=== PATIENT | male | born 1955 | race Hispanic/Latino ===

== ENCOUNTER 2017-11-06 03:37 | Inpatient (IN) | payer BC, MEDICARE ==
[2017-11-06 04:14] LABS: #Eosinphils 0.3 thou/uL (0.0-0.7); #Lymphocytes 4.6 thou/uL (1.20-3.40); %Basophils 0.2 % (0.0-1.0); %Lymphocytes 33.4 % (21.0-51.0); %Monocytes 6.9 % (0.0-10.0); %Neutrophils 57.6 % (42.0-75.0); Hemoglobin 13.4 g/dL (14.0-18.0); Mean Corpuscular HGB CONC 34.2 g/dL (32.0-36.0); Mean Corpuscular Hemoglobin 33.9 pg (27.0-31.0); Mean Corpuscular Volume 99.2 fl (80.0-94.0); Mean Platelet Volume 6.4 fL (7.4-10.4); Platelet Count 195 thou/uL (130-400); RBC Distribution Width 12.5 % (11.5-14.5); Red Blood Cell (RBC) Count 3.94 mill/uL (4.70-6.10); White Blood Cell (WBC) Count 13.9 thou/uL (4.8-10.8)
[2017-11-06] MEDS ORDERED: EPINEPHrine 1 MG, Admixture Fee 1 EACH in Dextrose 5% in Water 250 ML IVPB SCH (04:15)
[2017-11-06 04:18] LABS: PTT 40.5 SEC (22.9-36.1); Prothrombin Time 23.6 SEC (12.0-14.7)
[2017-11-06 04:27] LABS: Acetaminophen Less than 6.0 mcg/mL (10.0-30.0); Alcohol Less than 10 mg/dL (Less than 10); Salicylate Less than 8.0 mg/dL (15.0-30.0)
[2017-11-06 04:28] LABS: ALT (SGPT) 36 U/L (8-55); AST (SGOT) 40 U/L (5-34); Albumin 3.8 g/dL (3.5-5.0); Alkaline Phosphatase 91 U/L (40-150); Anion Gap 25 mmol/L (10-20); BUN (Urea Nitrogen) 22 mg/dL (8.4-25.7); Bilirubin, Total 0.2 mg/dL (0.2-1.2); Calc. Creatinine Clearance 0 mL/min (70-130); Carbon Dioxide 13 mmol/L (22-29); Chloride 105 mmol/L (98-107); Estimated GFR-MDRD 54; Globulin 2.8 g/dL (2.4-3.5); Glucose 251 mg/dL (70-105); Potassium 5.1 mmol/L (3.5-5.1); Protein, Total 6.6 g/dL (6.0-8.3); Sodium 138 mmol/L (136-145)
[2017-11-06 04:31] LABS: CKMB 3.8 ng/mL (0-6.6); Troponin I 0.047 ng/mL (< 0.028)
[2017-11-06] MEDS ORDERED: Lorazepam 2 MG/ML VIAL ONE ×4 (04:32→08:48)
[2017-11-06] MEDS ORDERED: Propofol 1,000 MG/100 ML VIAL IV ONE ×2 (04:42→09:03)
[2017-11-06 04:43] LABS: Actual Bicarbonate (HCO3a) 17.8 mEq/L (22-26); Base Excess (BEa) -10.1 mEq/L (0 (+/-) 2.5); CO2 Tension 47.1 mmHg (35.0-45.0); Hematocrit-ABG 36.9 % (42.0-52.0); O2 Tension (PaO2) 394.8 mmHg (80.0-100.0)
[2017-11-06 04:44] LABS: Analyzer IN Cardio ER; Calcium, Ionized 1.3 mmol/L (1.12-1.30); Hemoglobin (Hb) 12.5 g/dL (14.0-18.0); Puncture Site R RADIAL
[2017-11-06 04:46] LABS: ALV-art Gradient 259.325 (0-20)
[2017-11-06] MEDS ORDERED: Heparin 5,000 UNITS/ML VIAL ONE (05:05)
[2017-11-06 05:13] LABS: Bilirubin Negative (Negative); Blood, Urine Trace (Negative); Clarity CLEAR (Clear); Glucose, Urine (Dipstick) Negative (Negative); Leukocyte Negative (Negative); Nitrite Negative (Negative); Protein, Urine (Dipstick) Negative (Neg-Trace); Specific Gravity, Urine 1.014 (1.002-1.036); Urobilinogen 0.2 mg/dL (0.2-1.0)
[2017-11-06] MEDS ORDERED: levETIRAcetam In NaCl (Iso-Os) 1,500 MG in Premix Bag 1 BAG IVPB SCH (05:15)
[2017-11-06 05:16] LABS: Bacteria/HPF None Seen HPF (None Seen); Hyaline Casts/LPF 0-3 HYALINE CAST LPF (0-3 Hyaline); Pathc Cast-AUWi Flag 0.29 (0-2.49); RBC/HPF 0-3 HPF (0-3); Squamous Epithelial 0-3 HPF (0-3); WBC/HPF None Seen HPF (0-3)
[2017-11-06 05:24] LABS: Amphetamine Not Detected (NotDetected); Barbiturates Screen Detected (NotDetected); Benzodiazepine Screen Not Detected (NotDetected); Cocaine Metabolite Screen Not Detected (NotDetected); Medtox Control Line Valid? VALID (VALID); Medtox Reader # READER 4; Methadone Not Detected (NotDetected); Methamphetamine Not Detected (NotDetected); Opiate Screen Not Detected (NotDetected); Oxycodone Screen Not Detected (NotDetected); Phencyclidine (PCP) Not Detected (NotDetected); THC/Cannabinoid Screen Not Detected (NotDetected); Tricyclic Screen Not Detected (NotDetected)
--- NOTE | 2017-11-06 07:52 | RAD ---
PORTABLE SUPINE CHEST: HISTORY: STEMI. COMPARISON: 08/01/11. FINDINGS/IMPRESSION: Cardiomegaly with postop sternotomy change and prosthetic heart valve. Pacemaker leads. Mild vascul ar engorgement. No focal infiltrate or significant effusion. ET tube has tip above the ton. POS: [facility]
[2017-11-06 07:55] LABS: Actual Bicarbonate (HCO3a) 19.5 mEq/L (22-26); Base Excess (BEa) -5.2 mEq/L (0 (+/-) 2.5); CO2 Tension 35.1 mmHg (35.0-45.0); Calcium, Ionized 1.2 mmol/L (1.12-1.30); Hematocrit-ABG 35.6 % (42.0-52.0); Hemoglobin (Hb) 12.1 g/dL (14.0-18.0); O2 Tension (PaO2) 143.2 mmHg (80.0-100.0); pH, Arterial 7.36 (7.35-7.45)
[2017-11-06 07:56] LABS: ALV-art Gradient 166.925 (0-20); Puncture Site RR
[2017-11-06 08:21] LABS: Lactic Acid 2.9 mmol/L (0.5-2.2)
[2017-11-06] MEDS: Sodium Chloride 0.9% 1,000 ML IV SCH ×2 (08:39→19:29)
[2017-11-06] MEDS: Lorazepam 2 MG/ML VIAL SLOW IVP SCH ×4 (08:48→20:03)
[2017-11-06] MEDS ORDERED: Ventilator Sedation Protocol 1 EACH FS SCH (09:00)
[2017-11-06] MEDS ORDERED: PROPOFOL 0 ML ONE (09:02)
[2017-11-06] MEDS: Propofol 1,000 MG/100 ML VIAL IV PRN ×3 (09:06→22:27)
[2017-11-06] MEDS ORDERED: Ondansetron ODT 4 MG TAB SL PRN (09:19)
[2017-11-06] MEDS ORDERED: Bisacodyl 10 MG SUPP PR PRN (09:19)
[2017-11-06] MEDS ORDERED: hydrALAZINE 20 MG/ML VIAL SLOW IVP PRN (09:19)
[2017-11-06] MEDS ORDERED: Eucerin (Mineral Oil/Petrolatum,White) 30 gm Jar TOP PRN (09:19)
[2017-11-06] MEDS ORDERED: Mag-Al 1200 mg/1200 mg/30 ML UDCUP PER TUBE PRN (09:19)
[2017-11-06] MEDS ORDERED: Ondansetron HCl/PF 4 MG/2 ML Vial IVP PRN (09:19)
[2017-11-06] MEDS ORDERED: Diabetic Tussin 200 MG/10 ML UDCUP PER TUBE PRN (09:19)
[2017-11-06] MEDS ORDERED: Acetaminophen 325 MG TAB PER TUBE PRN (09:19)
[2017-11-06] MEDS ORDERED: Morphine 4 MG/ML VIAL SLOW IVP PRN (09:19)
[2017-11-06] MEDS ORDERED: Fentanyl BOLUS 250 ML IVPB PRN (09:19)
[2017-11-06] MEDS ORDERED: Milk Of Magnesia 30 ML UDCUP PER TUBE PRN (09:19)
[2017-11-06] MEDS ORDERED: Artificial Tears 18 DROP/0.9 ML EA EYE PRN (09:19)
[2017-11-06] MEDS ORDERED: Propofol BOLUS 1,000 MG/100 ML VIAL IV PRN (09:19)
[2017-11-06] MEDS ORDERED: Senokot 8.6 MG TAB PER TUBE PRN (09:19)
--- NOTE | 2017-11-06 10:36 | CON ---
DATE OF CONSULTATION: 11/06/2017 A 62-year-old gentleman who as per the daughter and the at 3:00 in the morning he started to seize. He has known history of seizure activity. Apparently CPR was initiated at home a ccording to arrival on the ER physician's note. He was in PEA. He was intubated with a #7 tube. During transport he was given epinephrine, sodium bicarbonate. Ongoing CPR with epinephrine. Patient was well prior to his recent event today. He has been healthy. No other issues. PAST MEDICAL HISTORY: Pertinent for hypertension, seizure disorders, aortic valve replacement 10 yea rs ago. He is status post defibrillator placed. He normally seeks care at [facility]. He has got [facility] there. Additionally, he apparently has a diagnosed of cirrhosis. Hypertension. PAST SURGICAL HISTORY: As noted, aortic valve and an AICD. MEDICATIONS FROM HOME: Dilantin 200 twice a day, amlodipine 10 a day, aspirin, Coreg 12.5 two a day, lisinopril 20, Cardura 1, Coumadin 3 mg. ALLERGIES: None. SOCIAL HISTORY: Alcohol; none. Tobacco none. He is a garcía, retired. REVIEW OF SYSTEMS: Unobtainable. PHYSICAL EXAMINATION: HEENT: Dilated pupils at 2 mm. He was seizing when I arrived. VITAL SIGNS: Sats are 98, respiration is 24, pulse 70, blood pressure 130/80. During seizure activi ty he was given 2 of Ativan. CHEST: No wheezing or crackles. CARDIAC: Normal S1, S2. No gallops. ABDOMEN: Soft, no masses. X-ray shows cardiomegaly, no acute infiltrates. PO2 is 143, pCO2 is 35.36, 50%, rate 25. His calcium is 2.9. His electrolytes were normal. A CT of the brain was done on an emergency basis. No obvious bleed was seen. Additional laboratory is pending. IMPRESSION: 1. Status epilepticus. 2. Status post pulseless electrical activity. 3. History of valvular surgery. 4. History of automatic implantable cardioverter/defibrillator in place. 5. Obesity. 6. Probably anoxic injury. PLAN: Control seizure activity with Keppra, Ativan. Await input from Neurology. Continue IV fluids . Continue hypothermic protocol. Proton pump inhibitors. At this stage, prognosis remains guarded. I discussed with the and the daughter at length. [place] it input from Neurology, etc. This is a Forty-five minutes critical care time.
[2017-11-06 10:48] LABS: Troponin I 3.491 ng/mL (< 0.028)
[2017-11-06] MEDS: levETIRAcetam In NaCl (Iso-Os) 1,000 MG in Premix Bag 1 BAG IVPB SCH ×2 (11:47→19:24)
--- NOTE | 2017-11-06 11:54 | ULT ---
BILATERAL TESTICULAR ULTRASOUND WITH DOPPLER: (DENIS SCALE, COLOR FLOW, AND SPECTRAL DOPPLER) Date: 11/06/17 HISTORY: 62-year-old male with edematous left scrotum. Concern for blood versus torsion. FINDINGS: The right testis measures 3.9 x 2.8 x 2.1 cm. The left testis measures 5.1 x 2.8 x 2.0 cm. No testicu lar mass is seen on either side. Flow is demonstrated to the right testis. The right epididymis measures 1.8 x 1.3 x 0.8 cm with cysts in the epididymal head, the largest measu ring 6.0 mm. The left epididymis is not visualized. There is questionable flow to the right epididymis. A large left-sided complex hydrocele is seen measuring 9.9 x 7.2 x 5.3 cm. No arterial flow is detect ed to the left testis. there is questionable minimal venous flow versus artifact in the left testis. IMPRESSION: 1. Large complex left hydrocele. 2. Questionable flow in the left testis is likely due to mass by the large hydrocele; however, the p ossibility of torsion cannot be completely excluded. A call was placed to Dr. Ami Pinzon at 1040 hours. Report was called over the phone to the patient's nurse Brea Dickey at 1053 hrs. CODE CR. POS: [facility]
--- NOTE | 2017-11-06 12:24 | CT ---
PRELIMINARY REPORT/[facility]/EMERGENTY AFTER-HOURS PROCEDURE CT Head Without Intravenous Contrast EXAM DATE/TIME: Exam ordered 11/06/2017 4:24 AM CLINICAL HISTORY: 62 years old, male; Signs and symptoms; Other: Seizure; Patient HX: M63 presents to ed intubated with cpr in progress. Initial call was for convulsions. HX of seizures. Family initiated cpr 15 minutes p rior to ems arrival. Ems took compressions over. TECHNIQUE: Axial computed tomography images of the head/brain without intravenous contrast. COMPARISON: No relevant prior studies available. FINDINGS: Brain: Normal. No hemorrhage. No significant white matter disease. No edema. Ventricles: Normal. No ventriculomegaly. Bones/joints: Normal. No acute fracture. Soft tissues: Normal. Sinuses: Unremarkable as visualized. No acute sinusitis. Mastoid air cells: Unremarkable as visualized. No mastoid effusion. IMPRESSION: No acute intracranial hemorrhage. Thank you for allowing us to participate in the care of your patient. Dictated and Authenticated by: Tushar Jurado MD 11/06/2017 4:53 AM Central Time ([place] & [place]) FINAL REPORT CT BRAIN WITHOUT CONTRAST: Date: 11/06/17 FINDINGS/IMPRESSION: I agree with the preliminary report given by Luke. POS: [facility]
--- NOTE | 2017-11-06 12:27 | CT ---
PRELIMINARY REPORT/[facility]/EMERGENTY AFTER-HOURS PROCEDURE CT Cervical Spine Without Intravenous Contrast EXAM DATE/TIME: Exam ordered 11/06/2017 4:26 AM CLINICAL HISTORY: 62 years old, male; Signs and symptoms; Other: Seizure; Patient HX: M63 presents to ed intubated with cpr in progress. Initial call was for convulsions. HX of seizures. Family initiated cpr 15 minutes p rior to ems arrival. Ems took compressions over. TECHNIQUE: Axial computed tomography images of the cervical spine without intravenous contrast. Coronal and sagittal reformatted images were created and reviewed. COMPARISON: No relevant prior studies available. FINDINGS: Vertebrae: No acute cervical spine fracture is identified. Discs/spinal canal/neural foramina: No acute findings. No spinal canal stenosis. Soft tissues: Normal. Lung apices: Unremarkable as visualized. Tubes, lines and devices: Patient is intubated. IMPRESSION: No acute cervical spine fracture is identified. Thank you for allowing us to participate in the care of your patient. Dictated and Authenticated by: Tushar Jurado MD 11/06/2017 4:55 AM Central Time ([place] & [place]) FINAL REPORT CT CERVICAL SPINE WITH CORONAL AND SAGITTAL REFORMATIONS: Date: 11/06/17 FINDINGS/IMPRESSION: I agree with the preliminary report given by Luke. POS: [facility]
--- NOTE | 2017-11-06 12:41 | PDOC.PN ---
- Subjective Encounter Start Date: 11/06/17 Encounter Start Time: 09:15 -: old records requested/rev Patient seen and examined for cardiac arrest. Noted overnight events - Objective MAR Reviewed: Yes Vital Signs & Weight: Vital Signs (12 hours) Temp Pulse Resp BP Pulse Ox 11/06/17 12:25 70 109/59 L 11/06/17 10:23 70 105/57 L 11/06/17 08:00 98.7 F 70 25 H 98 11/06/17 07:43 70 126/76 Most Recent Monitor Data Heart Rate from ECG 78 NIBP 105/74 NIBP BP-Mean 81 Respiration from ECG 20 SpO2 99 I&O: 11/05/17 11/06/17 11/07/17 06:59 06:59 06:59 Output Total 165 Balance -165 Result Diagrams: 11/06/17 04:02 11/06/17 04:02 Radiology Reviewed by me: Yes (chest xray) EKG Reviewed by me: Yes (nsr) Phys Exam - Physical Examination Constitutional: NAD intubated pupil dilated Neck: no nodes, supple Respiratory: no wheezing, no rales, no rhonchi Cardiovascular: RRR, no significant murmur, no rub Gastrointestinal: soft distended Musculoskeletal: no edema, pulses present testicular swelling unable to assess due to intubated and unresponsive Lymphatic: no nodes Deviation from normal: unable assess Skin: no rash Dx/Plan (1) Acute respiratory failure with hypoxemia Code(s): J96.01 - ACUTE RESPIRATORY FAILURE WITH HYPOXIA Status: Acute (2) Cardiac arrest Code(s): I46.9 - CARDIAC ARREST, CAUSE UNSPECIFIED Status: Acute (3) Demand ischemia of myocardium Code(s): I24.8 - OTHER FORMS OF ACUTE ISCHEMIC HEART DISEASE Status: Acute (4) Lactic acidosis Code(s): E87.2 - ACIDOSIS Status: Acute (5) Chronic anticoagulation Code(s): Z79.01 - USP (CURRENT) USE OF ANTICOAGULANTS Status: Chronic (6) H/O heart valve replacement with mechanical valve Code(s): Z95.2 - PRESENCE OF PROSTHETIC HEART VALVE Status: Chronic (7) Obesity (BMI 30-39.9) Code(s): E66.9 - OBESITY, UNSPECIFIED Status: Chronic (8) Pacemaker Code(s): Z95.0 - PRESENCE OF CARDIAC PACEMAKER Status: Chronic - Plan cont current plan of care, plan discussed w/ family * currently on hypothermia protocol * neurology, pulmonary, cardiology on case * discussed current condition and updated prognosis to family bedside. * will get echo * pacemaker interrogation * medication reviewed as below * symptomatic treatment * prognosis is poor * keep NPO, NG tube with LIS * continue keppra Review of Systems - Review of Systems Other: unable to review due to intubated status and pt is unresponsive - Medications/Allergies Allergies/Adverse Reactions: Allergies Allergy/AdvReac Type Severity Reaction Status Date / Time No Known Allergies Allergy Verified 11/06/17 09:00 Medications: Current Medications Acetaminophen (Tylenol) 650 mg PER TUBE Q4H PRN PRN Reason: Headache/Fever or Mild Pain Acetaminophen (Tylenol) 650 mg ND Q4H PRN PRN Reason: Headache/Fever or Mild Pain Al Hydroxide/Mg Hydroxide (Maalox) 15 ml PER TUBE Q4H PRN PRN Reason: Heartburn or Indigestion Artificial Tears (Tears Naturale) 0 drop EA EYE PRN PRN PRN Reason: Dry Eyes Bisacodyl (Dulcolax) 10 mg ND DAILYPRN PRN PRN Reason: Constipation Guaifenesin (Robitussin Sf) 200 mg PER TUBE Q4H PRN PRN Reason: Cough Hydralazine HCl (Apresoline) 10 mg SLOW IVP Q4H PRN PRN Reason: Systolic BP > 180 Epinephrine 1 mg/Miscellaneous Medication 1 each/ Dextrose/Water 251 mls @ 0 mls/hr IVPB INF CITLALI; Titrate PRN Reason: Protocol Sodium Chloride (Normal Saline 0.9%) 1,000 mls @ 110 mls/hr IV .Q9H6M [facility] Stop: 11/06/17 17:00 Last Admin: 11/06/17 08:39 Dose: 1,000 mls Levetiracetam 1,000 mg/ Device 100 mls @ 200 mls/hr IVPB BID CITLALI Last Admin: 11/06/17 11:47 Dose: Not Given Fentanyl Citrate 2,000 mcg/ (Sodium Chloride) 100 mls @ 0 mls/hr IV INF CITLALI; Per Protocol PRN Reason: Protocol Stop: 12/06/17 09:19 Fentanyl Citrate (Fentanyl Bolus) 250 mls @ 0 mls/hr IVPB PRN PRN; As Directed PRN Reason: Breakthrough pain/agitation Stop: 12/06/17 09:19 Lorazepam (Ativan) 2 mg SLOW IVP Q4HR CITLALI Last Admin: 11/06/17 08:48 Dose: 2 mg Lorazepam (Ativan) 2 mg SLOW IVP Q1H PRN PRN Reason: Breakthrough agitation Stop: 12/06/17 09:19 Magnesium Hydroxide (Milk Of Magnesium) 30 ml PER TUBE DAILYPRN PRN PRN Reason: Constipation Mineral Oil/White Petrolatum (Eucerin Cream) 0 gm TOP BIDPRN PRN PRN Reason: Dry Skin Morphine Sulfate (Morphine) 2 mg SLOW IVP Q1H PRN PRN Reason: breakthrough pain/agitation Stop: 12/06/17 09:19 Ondansetron HCl (Zofran Odt) 4 mg SL Q6H PRN PRN Reason: Nausea/Vomiting Ondansetron HCl (Zofran) 4 mg IVP Q6H PRN PRN Reason: Nausea/Vomiting Pantoprazole Sodium (Protonix) 40 mg IVP DAILY CITLALI Propofol (Diprivan) 1,000 mg IV INF PRN; Protocol PRN Reason: TO ACHIEVE GOAL RASS Stop: 12/06/17 09:19 Last Admin: 11/06/17 09:06 Dose: 1,000 mg Propofol (Diprivan Bolus) 20 mg IV Q5MIN PRN PRN Reason: BREAKTHROUGH AGITATION Stop: 12/06/17 09:19 Senna (Senokot) 2 tab PER TUBE HSPRN PRN PRN Reason: Constipation Sodium Chloride (Flush - Normal Saline) 10 ml IVF PRN PRN PRN Reason: Saline Flush
[2017-11-06] MEDS: Pantoprazole 40 MG VIAL IVP SCH (13:11)
--- NOTE | 2017-11-06 14:06 | HP ---
PRIMARY CARE PHYSICIAN: Patient's neurologist. CHIEF COMPLAINT: Loss of consciousness. HISTORY OF PRESENT ILLNESS: This is a 62-year-old male with known history of seizures, CABG, valvular replacement who presented after being found at home having seizures with subsequent loss of pulse. It appears that the patient's awoke from sleep at about 3:00 this morning because she noticed her is having seizures. She could not wake him up and noted that he did not have any pulses. Both her and her daughter at home subsequently started CPR and continued this for approximately 15 minutes until EMS arrived. At the time of EMS arrival, the patient was intubated in the field and still had what was described as PEA and continued to undergo CPR and ACLS protocol until arrival in the emergency department. In the emergency department, ACLS was again continued and the patient did have subsequent return of return of spontaneous circulation. In the emergency department, the patient was found to be unresponsive with bilateral pupils fixed and nonreactive. He then subsequently had a second code event which was also described as pulseless electrical activity. This occurred in the Emergency Department, please see the code report for further details regarding that episode. The patient was subsequently placed on a Levophed drip for hypotension. He is currently on mechanical ventilation and has also been given Ativan for concern of possible recurrent seizure in the emergency department. At the time of my evaluation, the patient is unable to provide a history. The history is as provided by the family including his sister, his and his daughter in conjunction with the ER documentation. REVIEW OF SYSTEMS: As provided by the family. Constitutional: No recent fevers, chills or weight changes. HEENT: No recent complaints of dizziness, lightheadedness, or vision changes. Patient's family states that the last time he had a seizure was sometime in July and he has not had any seizures since then. The patient does occasionally have seizures, but he has never lost pulses or required CPR post-seizure. Cardiovascular: No recent complaints of shortness of breath, dyspnea with exertion, chest pain, chest pressure, left- sided arm numbness, or weakness. Patient has been on Coumadin and he has not had any other changes to his cardiac regimen. Respiratory: No recent upper respiratory infection. The patient has been complaining of some seasonal congestion which he typically does about this time of the year historically per family. No recent complaints of shortness of breath. No recent new cough. Gastrointestinal: No recent changes in his appetite. No complaints of nausea, vomiting, diarrhea, constipation or abdominal pain. Genitourinary: The patient 's family has not noticed any increased urinary frequency nor has the patient complained to them of any dysuria or changes in urine odor or color. Musculoskeletal: The patient's family states that the patient has been very active, has not complained of any new myalgias or arthralgias. Remainder of the review of systems is otherwise, negative. PAST MEDICAL HISTORY: As obtained from the patient's family. 1. Longstanding epileptic seizures. He has seen a neurologist for this in the past. 2. Status post CABG x4 vessels. 3. Status post valvular replacement. 4. Status post permanent pacemaker. 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 FAMILY HISTORY: No known family history of seizures or cardiac arrhythmia or cancers. Patient's father had of a heart attack and his mother had congestive heart failure at the time of as well. HOME MEDICATIONS: Awaiting a finalized list from the patient's family, they have brought in the medications and these will need to be confirmed in the system section. SOCIAL HISTORY: Patient is . His is present at bedside. He is a lifetime nonsmoker. No alcohol use, no illicit drug use. His family including his sister, and daughter all at bedside endorsed that he would want to be a FULL CODE at this point in time. They state that when he had his CABG, he actually was rather ill immediately before and had indicated he wished to be DNR at that point in time, but then subsequently reversed that decision. PHYSICAL EXAMINATION: GENERAL: The patient is intubated. He is nonresponsive to painful stimuli despite being off of sedation. HEENT: Normocephalic, atraumatic. Pupils pinpoint and nonreactive. OG tube is draining bilious green fluid. CARDIOVASCULAR: S1, S2. Pulses 2+ bilateral upper extremity. Trace bilateral pitting pedal edema. RESPIRATORY: Coarse ventilator sounds throughout. Limited anterior examination. GASTROINTESTINAL: Positive bowel sounds. ABDOMEN: Distended but not tense. GENITOURINARY: The patient is noted to have a significant scrotal swelling per ER staff, this has actually increased in size during his emergency department stay subjectively. LABORATORY DATA AND IMAGING: WBC 13.9, hemoglobin 13.4, hematocrit 39.1, platelets 195. PT 23.6, INR 2.0. ABG: pH of 7.36, pCO2 of 35.1, pO2 of 143.2 , bicarbonate 19.5. Sodium 138, potassium 5.1, chloride 105, bicarb on BMP is 13, BUN 22, creatinine 1.35, glucose 251, lactic acid 2.9, AST 40, ALT 36, alkaline phosphatase 91. Troponin initial 0.57 subsequent 3.491. BNP 363. UA is significant for trace blood. Toxicology is positive for 2.2 of phenytoin and urine barbiturates noted. On 11/06/2017, chest x-ray. Impression: Cardiomegaly with postop sternotomy changes and prosthetic heart valve. Pacemaker leads. Mild vascular engorgement. No focal infiltrate or significant effusion. ET tube has tip above the ton. ASSESSMENT AND PLAN: This is a 62-year-old male who was brought in with pulseless electrical activity arrest to the emergency department by EMS. 1. Pulseless electrical activity arrest. Unclear etiology at this point in time. Patient is certainly post-ACLs protocol for greater than 15 minutes now, has noted elevated troponins and lactic acidosis. The patient does have a known seizure history and was noted to have a seizure immediately prior to loss of pulses, unclear if there is another event that precipitated both seizure and the patient's cardiac arrest as it would not be typical for a straightforward seizure to cause overt cardiac arrest. I appreciate Critical Care consultation , Cardiology consultation, Neurology consultation. Patient does have a brain CT which per my view and evaluation does not appear to have any overt hemorrhage or intracranial mass. However, this is also pending a formal radiology evaluation of the imaging. The patient is currently on hypothermia protocol status post arrest. I have discussed with the patient's family that his overall prognosis is very guarded at this point in time. They have discussed and wished to maintain him as a FULL CODE at this point in time as well. 2. Seizure history with breakthrough seizure. Will check patient's Dilantin level. It appears that on outpatient basis, he was initially noted to have "high" levels and was instructed to stop his Dilantin and not take it for the last 3 days. The patient has always used Dilantin. The patient's family is not aware of him either ever being trialled on any other antiepileptic regimen. Certainly, the patient's leukocytosis and lactate could be reactive in the postictal phase. 4. Acute hypoxic respiratory failure in the setting of a cardiac arrest. The patient is currently intubated on ventilator. Per the patient's , he has never had a formal sleep study, but he does have apneic episodes by description. She states that this is not every night, but often times. Unclear if this is truly contributory or not. 5. Elevated troponin. This is noted in the setting of cardiac arrest status post CPR. I appreciate Cardiology consultation. The patient certainly does have a longstanding history of cardiac issues. We will check echocardiogram and interrogate his permanent pacemaker with close monitoring of his electrolytes as well. 6. Leukocytosis with concern for possibility of infection, although no overt source found at this point in time, pending blood cultures, pending urine cultures. 7. Lactic acidosis post-cardiac arrest and CPR. Continue with IV hydration and repeat lactic acid. Please see discussion above regarding multiple potential etiologies for this. Patient is currently n.p.o., OG tube with greenish bilious fluid. Activity currently bed rest on ventilator. DVT prophylaxis, currently on heparin. Admit the patient to the CCU. Patient is FULL CODE as discussed above. Greater than 45 minutes critical care time spent coordinating admission and care for the patient. Thank you for asking me to care for the patient. RENEE
[2017-11-06] MEDS: Lorazepam 2 MG/ML VIAL SLOW IVP PRN (17:53)
[2017-11-06] MEDS: fentaNYL Citrate/PF 2,000 MCG in Sodium Chloride 0.9% 60 ML IV SCH (22:16)
[2017-11-07] MEDS: Lorazepam 2 MG/ML VIAL SLOW IVP SCH ×6 (00:27→20:41)
[2017-11-07] MEDS ORDERED: Furosemide 20 MG/2 ML VIAL SLOW IVP SCH (00:30)
--- NOTE | 2017-11-07 00:33 | CON ---
DATE OF ADMISSION: 11/06/2017 DATE OF CONSULTATION: 11/06/2017 INDICATION FOR CONSULTATION: A 62-year-old patient who was felt to be having probably acute myocardial infarction. HISTORY OF PRESENT ILLNESS: This very unfortunate 62-year-old gentleman has a long history of cardiac problems. He was diagnosed with having a nonischemic alcoholic cardiomyopathy back in I believe 2006. He then was treated medically. He was stopped drinking and the ejection fraction by 2014, appeared to be normal by echocardiogram. He also had a pacemaker insertion in 2010, as well as aortic valve replacement in 2006. He was implanted with a [employer] mechanical valve, size #23. He has been followed by Dr. Thorne for quite some time now. He has not always been compliant with followups, however. He has last cardiac catheterization apparently was in 2006. At that time, he underwent aortic valve replacement. According to the records that they have in Dr. Jewel Thorne's office, he apparently did not have any significant coronary artery disease and no bypass surgery was performed. He has had other medical problems and also has a history of seizure disorder. Apparently, early this morning, he had a seizure around 3:00 or 3:30 in the morning. The family found the patient, he was somewhat unresponsive. CPR was started, but there were no respirations given, just chest compressions or 911 was called. They arrived and they continued CPR. The patient was then brought to the emergency room here with I believe he had also coded again once or twice, underwent further CPR. 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 He was pacing apparently from the ventricular pacer. He does have chronic atrial fibrillation, was having ventricular pacing. Since the patient was unresponsive and was having seizures, it was not felt that he was a candidate for any type of further intervention and his episode may be related to his seizures and not due to any cardiac problem at this time. However, he certainly may have had an event earlier, which provoked his unresponsiveness whether or not this is a seizure or whether or not he perhaps had some ventricular tachycardia was uncertain. He does have a pacemaker inserted, we will interrogate the pacemaker to see whether or not there are any events that we can determine. At this time, he remains on the ventilator. He is sedated and has been given medications for his seizures. His family is at the bedside and they did provide some information. PAST MEDICAL HISTORY: Significant for aortic valve replacement, pacemaker insertion, history of cardiomyopathy which improved. He has a history of hepatitis B. He has had a history of cirrhosis. He has history of seizure disorders. Actually, there is some question about the bypass surgery, I will need to find further records to determine whether or not they had any bypass or if he did have aortic valve replacement. FAMILY HISTORY: Noncontributory at this time. MEDICATIONS: According to the records, he was taking Coreg, lisinopril, aspirin. He has been on Crestor, but stopped taking over a year ago, amlodipine , Coumadin, doxazosin, and Dilantin. Dilantin 100 mg t.i.d., warfarin 3 mg as directed by his primary care physician, amlodipine 10 mg a day, Crestor was not being taken, aspirin 81 mg a day, lisinopril 40 mg a day, Coreg 12.5 mg b.i.d. SOCIAL HISTORY: He is . He has children who are alive and well. He drank in the past, but apparently has not been drinking for any longer. No tobacco abuse at this time. REVIEW OF SYSTEMS: Cannot be obtained, but according to the family, there has been no recent acute problems except for the seizures. PHYSICAL EXAMINATION: GENERAL: Reveals an elderly gentleman who is sedated on the ventilator. VITAL SIGNS: Blood pressure at this time is 117/72, heart rate 74 and shows ventricular pacing is irregular rhythm, underlying atrial fibrillation, respiratory rate 18. HEENT: Shows head to be normocephalic, atraumatic. NECK: Carotid pulses are present. I cannot hear any bruits at this time. CHEST: Actually appears to be clear. I did not hear rales, rhonchi, or wheezing. There is upper airway noise associated with the ventilation from the ventilator. CARDIOVASCULAR: He has a regular rhythm, but is pacing. I did not hear gross murmurs. He has an audible aortic valve, which is mechanical and metallic sound. ABDOMEN: Shows abdomen to be obese with positive bowel sounds, but they are somewhat decreased. EXTREMITIES: Showed no clubbing or cyanosis. NEUROLOGIC: The patient is sedated. LABORATORY DATA AND DIAGNOSTIC DATA: EKG shows 100% pacing, ventricular pacing with underlying atrial fibrillation. Shows WBC of 13.9 with hemoglobin of 13.4. Lactic acid was elevated at 14.2, is now decreased down to 2.9. MBs were 3.8 originally with a troponin I which is increased from 0.047 up to 3.49 and BNP of 362, the elevated troponin I certainly could indicate a non-ST segment elevation myocardial infarction or could be demand ischemia associated with his seizure disorder or due to the previous CPR that the patient did obtain. At this time, he is not a candidate to proceed with cardiac catheterization. IMPRESSION: 1. Seizure disorder. The patient has some type of seizure this morning whether or not this is due to an anoxic injury, whether or not this is just due to part of his seizure disorder, being low on his Dilantin. He recently was in the [facility] for seizures and was found to have a low Dilantin level. This will be dealt with by the primary care service. 2. Abnormal cardiac enzymes which could indicate demand ischemia or could be due to the recent shocks as well as the CPR that the patient obtained. We will continue to follow this should become more stable or at least appear to be viable, then this could be an option to undergo cardiac catheterization. 3. History of hypertension. This is stable at this time. 4. History of chronic atrial fibrillation. He has been on warfarin. He will need to have some kind of anticoagulation. Certainly at this time, we could continue with Lovenox or heparin as indicated, being careful to watch for bleeding since the patient did receive CPR. We will obtain an echocardiogram for evaluation of left ventricular function and size and further recommendations will depend on evaluation on the echocardiogram. At this time, he appears to be stable. Vital signs are stable. The family is at the bedside. RENEE
--- NOTE | 2017-11-07 04:16 | CON ---
DATE OF CONSULTATION: 11/06/2017 Consultation was requested for left scrotal swelling. HISTORY OF PRESENT ILLNESS: The patient is a 62-year-old male with a known history of seizures, who was found down seizing and emergency services were called and he was found to have pulseless electrical activity and underwent both intubation and CPR in the field for at least 40 minutes. He has been intubated without sedation, but without any obvious signs of spontaneous awareness. At some point, someone noticed scrotal swelling, got an ultrasound and I was consulted. There is no known history of any trauma or recent injury to that area. I got the information from the chart and the nurse. PAST MEDICAL HISTORY: Significant for seizures, hypertension, cirrhosis, and questionable diabetes. His glucose is elevated. PAST SURGICAL HISTORY: Includes defibrillator and aortic valve replacement. MEDICATIONS: Include Dilantin 200 mg b.i.d., amlodipine 10 mg daily, aspirin daily as well as Coumadin 3 mg daily, Cardura 1 mg, I suppose this is for blood pressure, Coreg 1mg b.i.d., lisinopril 20 mg daily. ALLERGIES: None. SOCIAL HISTORY: He does not smoke, drink or use drugs. He is a retired garcía. REVIEW OF SYSTEMS: Not obtained as there is no family at the bedside. He is noncommunicative. FAMILY HISTORY: Not obtained as there is no family at the bedside. He is noncommunicative. ROS: No known issues or concerns that I am aware. PHYSICAL EXAMINATION: GENERAL: He is intubated and non-responsive. VITAL SIGNS: Stable, blood pressure 109/59, heart rate 78, satting 99% on oxygenated air. Hinojosa put out 165, it is draining yellow urine. HEENT: He does not respond to voice or stimuli. CARDIOVASCULAR: Heart sounds are not easily heard due to the ventilator. LUNGS: Sounds were relatively clear. He had a cold vest on. ABDOMEN: Distended, but soft. GENITOURINARY: Testes were descended bilaterally. There was obvious left hemiscrotal swelling without any erythema, edema of the skin nor ecchymosis. Phallus was uncircumcised without lesions. Early phimosis, but able to be retracted and reduced without difficulty. SHOLA deferred. EXTREMITY: There is no significant lower extremity edema, no obvious skin lesions. LABORATORY DATA: CBC was unremarkable. BUN and creatinine are 22 and 1.35. INR was 2. Troponins were significantly elevated. Urinalysis revealed no WBCs , 0-3 RBCs, no bacteria, 0-3 squamous cells. There were no PSAs. Scrotal ultrasound from 11/16/2017 was reviewed personally and by report, shows "large left complex hydrocele with questionable flow in the left testis due to mass effect; however torsion cannot be completely excluded." Putting together the clinical scenario, exam, and reviewing the ultrasound, I am not concerned for torsion or lack of blood flow. The testicle is normal and its flow was measured through the significant fluid from the hydrocele if not a spermatocele , so it would be dampened in comparison to the right. ASSESSMENT AND PLAN: A 62-year-old male with an incidental left hydrocele versus spermatocele, multiple other present issues and nothing of concern from a urological standpoint at this time. Please call for further concerns. TANIAD
[2017-11-07] MEDS: Propofol 1,000 MG/100 ML VIAL IV PRN ×3 (04:24→16:38)
[2017-11-07 05:17] LABS: Anion Gap 17 mmol/L (10-20); BUN (Urea Nitrogen) 45 mg/dL (8.4-25.7); Calc. Creatinine Clearance 40 mL/min (70-130); Calcium 8.1 mg/dL (7.8-10.44); Carbon Dioxide 22 mmol/L (22-29); Chloride 105 mmol/L (98-107); Estimated GFR-MDRD 22; Glucose 84 mg/dL (70-105); Potassium 6.7 mmol/L (3.5-5.1); Sodium 137 mmol/L (136-145)
[2017-11-07] MEDS ORDERED: Dextrose 50% Abboject 50 ML SYRINGE SLOW IVP PRN (05:23)
[2017-11-07] MEDS ORDERED: Calcium Gluc 4.6 MEQ/10 ML (100 MG/ML) SLOW IVP SCH (05:23)
[2017-11-07] MEDS ORDERED: Insulin Regular 300 UNITS/3 ML VIAL IVP SCH ×2 (05:30→09:15)
[2017-11-07 06:07] LABS: Band 1 % (5-11); Hemoglobin 12.5 g/dL (14.0-18.0); Hypochromia SLIGHT = 6-15 cells (100X) (0-5/hpf); Lymphocytes 3 % (21-51); MDiff Complete? YES; Mean Corpuscular HGB CONC 34.3 g/dL (32.0-36.0); Mean Corpuscular Volume 96.1 fl (80.0-94.0); Monocytes 8 % (0-10); Neutrophil 88 % (42-75); PLT Morphology Comment Appears Adequate; Platelet Count 165 thou/uL (130-400); RBC Distribution Width 12.8 % (11.5-14.5); White Blood Cell (WBC) Count 22.7 thou/uL (4.8-10.8)
[2017-11-07] MEDS: levETIRAcetam In NaCl (Iso-Os) 1,000 MG in Premix Bag 1 BAG IVPB SCH ×2 (07:50→20:26)
[2017-11-07] MEDS: Pantoprazole 40 MG VIAL IVP SCH (07:51)
[2017-11-07] MEDS: Sodium Chloride 0.9% 1,000 ML IV SCH ×2 (07:53→20:27)
--- NOTE | 2017-11-07 08:49 | RAD ---
PORTABLE SUPINE CHEST: Date: 11/07/17 HISTORY: Dyspnea. CCU follow-up. COMPARISON: 11/06/17. FINDINGS: Cardiomegaly with postop sternotomy change again noted. Mild vascular engorgement. ET tube remains in place. NG tube has been inserted. Pacemaker leads are unchanged. IMPRESSION: No acute finding or significant change from yesterday. POS: [facility]
[2017-11-07] MEDS ORDERED: Albuterol Sulfate 2.5 mg/0.5 ml Neb ONE (08:59)
[2017-11-07] MEDS ORDERED: Albuterol Sulfate 2.5 mg/3 ml Neb ONE (08:59)
[2017-11-07] MEDS ORDERED: Dextrose 50% Abboject 50 ML SYRINGE SLOW IVP SCH (09:15)
--- NOTE | 2017-11-07 09:33 | PRG ---
DATE OF SERVICE: 11/07/2017 SUBJECTIVE: This morning, he is intubated on the vent, on fentanyl, Diprivan, Keppra. His myoclonic jerks have somewhat improved. He is still tachypneic. He remains unresponsive. He is in a cooling blanket. OBJECTIVE: VITAL SIGNS: Blood pressure 140/69, pulse 100, respirations set at 30. He is afebrile. His urine output has decreased substantially to _380ML_. CHEST: Chest revealed decreased breath sounds, no wheezing. CARDIAC: Normal S1 and S2, no gallops. ABDOMEN: Soft, no masses. EXTREMITIES: No edema. LABORATORY DATA: White count 20,000, H and H 12 and 36, platelet count 165. His creatinine is 3.2_ yesterday, BUN is 45, potassium 6.7, troponin is 3.49. IMPRESSION: 1. Status post anoxic injury. 2. Status post seizure activity. 3. Status post pulseless electrical activity. 4. Respiratory failure. 5. Renal failure. PLAN: The patient has a worsening renal function. Nephrology has been consulted. Cardiology has been consulted. Await input from Neurology. He is currently not weanable. Discussed with family. Long-term prognosis is obviously grave. Once he has had cooling for 24 hours, we will discontinue cooling and start low-dose nutrition. This is a one-half- hour critical care time. M[facility] HOSPITALAugie
--- NOTE | 2017-11-07 10:40 | PDOC.PN ---
- Subjective Encounter Start Date: 11/07/17 Encounter Start Time: 10:10 Patient seen and examined for cardiac arrest. Noted overnight events - Objective MAR Reviewed: Yes Vital Signs & Weight: Vital Signs (12 hours) Temp Pulse Resp BP Pulse Ox 11/07/17 10:26 70 128/66 11/07/17 10:00 31 H 11/07/17 08:48 72 126/66 11/07/17 08:00 92.1 F L 80 31 H 96 11/07/17 07:52 70 140/69 11/07/17 06:00 20 11/07/17 04:00 27 H 11/07/17 02:44 70 11/07/17 02:00 24 H 11/07/17 00:19 70 11/07/17 00:00 28 H 11/06/17 23:50 71 Weight Admit Weight 238 lb 1.588 oz Weight 238 lb 1.588 oz Most Recent Monitor Data Heart Rate from ECG 70 NIBP 129/62 NIBP BP-Mean 82 Respiration from ECG 25 SpO2 94 I&O: 11/06/17 11/07/17 11/08/17 06:59 06:59 06:59 Intake Total 2552 Output Total 926 105 Balance 1626 -105 Result Diagrams: 11/07/17 04:41 11/07/17 04:41 Radiology Reviewed by me: Yes (chest xray) EKG Reviewed by me: Yes (pacing) Phys Exam - Physical Examination Constitutional: NAD intubated pupil dilated Neck: no JVD, supple Respiratory: no wheezing, no rales, no rhonchi Cardiovascular: no significant murmur, no rub, irregular SM+ Gastrointestinal: soft mild distension Musculoskeletal: no edema, pulses present Lymphatic: no nodes Skin: no rash, normal turgor Dx/Plan (1) Acute respiratory failure with hypoxemia Code(s): J96.01 - ACUTE RESPIRATORY FAILURE WITH HYPOXIA Status: Acute (2) Cardiac arrest Code(s): I46.9 - CARDIAC ARREST, CAUSE UNSPECIFIED Status: Acute (3) Demand ischemia of myocardium Code(s): I24.8 - OTHER FORMS OF ACUTE ISCHEMIC HEART DISEASE Status: Acute (4) Lactic acidosis Code(s): E87.2 - ACIDOSIS Status: Acute (5) Chronic anticoagulation Code(s): Z79.01 - ALF (CURRENT) USE OF ANTICOAGULANTS Status: Chronic (6) H/O heart valve replacement with mechanical valve Code(s): Z95.2 - PRESENCE OF PROSTHETIC HEART VALVE Status: Chronic (7) Obesity (BMI 30-39.9) Code(s): E66.9 - OBESITY, UNSPECIFIED Status: Chronic (8) Pacemaker Code(s): Z95.0 - PRESENCE OF CARDIAC PACEMAKER Status: Chronic (9) Acute kidney failure Status: Acute (10) Hyperkalemia Code(s): E87.5 - HYPERKALEMIA Status: Acute (11) Chronic atrial fibrillation Code(s): I48.2 - CHRONIC ATRIAL FIBRILLATION Status: Chronic - Plan cont current plan of care, plan discussed w/ family * continue hypothermia protocol for now * pt is not weanable * prognosis is guarded * monitor labs * vent per pulmonary * discussed with family * hyperkalemia treated. Review of Systems - Review of Systems Other: unable to review due to intubated status and pt is unresponsive - Medications/Allergies Allergies/Adverse Reactions: Allergies Allergy/AdvReac Type Severity Reaction Status Date / Time No Known Allergies Allergy Verified 11/06/17 09:00 Medications: Current Medications Acetaminophen (Tylenol) 650 mg PER TUBE Q4H PRN PRN Reason: Headache/Fever or Mild Pain Acetaminophen (Tylenol) 650 mg WI Q4H PRN PRN Reason: Headache/Fever or Mild Pain Al Hydroxide/Mg Hydroxide (Maalox) 15 ml PER TUBE Q4H PRN PRN Reason: Heartburn or Indigestion Artificial Tears (Tears Naturale) 0 drop EA EYE PRN PRN PRN Reason: Dry Eyes Bisacodyl (Dulcolax) 10 mg WI DAILYPRN PRN PRN Reason: Constipation Guaifenesin (Robitussin Sf) 200 mg PER TUBE Q4H PRN PRN Reason: Cough Hydralazine HCl (Apresoline) 10 mg SLOW IVP Q4H PRN PRN Reason: Systolic BP > 180 Epinephrine 1 mg/Miscellaneous Medication 1 each/ Dextrose/Water 251 mls @ 0 mls/hr IVPB INF CITLALI; Titrate PRN Reason: Protocol Levetiracetam 1,000 mg/ Device 100 mls @ 200 mls/hr IVPB BID CITLALI Last Admin: 11/07/17 07:50 Dose: 100 mls Fentanyl Citrate 2,000 mcg/ (Sodium Chloride) 100 mls @ 0 mls/hr IV INF CITLALI; Per Protocol PRN Reason: Protocol Stop: 12/06/17 09:19 Last Admin: 11/06/17 22:16 Dose: 100 mls Fentanyl Citrate (Fentanyl Bolus) 250 mls @ 0 mls/hr IVPB PRN PRN; As Directed PRN Reason: Breakthrough pain/agitation Stop: 12/06/17 09:19 Sodium Chloride (Normal Saline 0.9%) 1,000 mls @ 70 mls/hr IV .[id number] [facility] Last Admin: 11/07/17 07:53 Dose: 1,000 mls Lorazepam (Ativan) 2 mg SLOW IVP Q4HR [facility] Last Admin: 11/07/17 07:51 Dose: 2 mg Lorazepam (Ativan) 2 mg SLOW IVP Q1H PRN PRN Reason: Breakthrough agitation Stop: 12/06/17 09:19 Last Admin: 11/06/17 17:53 Dose: 2 mg Magnesium Hydroxide (Milk Of Magnesium) 30 ml PER TUBE DAILYPRN PRN PRN Reason: Constipation Mineral Oil/White Petrolatum (Eucerin Cream) 0 gm TOP BIDPRN PRN PRN Reason: Dry Skin Morphine Sulfate (Morphine) 2 mg SLOW IVP Q1H PRN PRN Reason: breakthrough pain/agitation Stop: 12/06/17 09:19 Ondansetron HCl (Zofran Odt) 4 mg SL Q6H PRN PRN Reason: Nausea/Vomiting Ondansetron HCl (Zofran) 4 mg IVP Q6H PRN PRN Reason: Nausea/Vomiting Pantoprazole Sodium (Protonix) 40 mg IVP DAILY [facility] Last Admin: 11/07/17 07:51 Dose: 40 mg Propofol (Diprivan) 1,000 mg IV INF PRN; Protocol PRN Reason: TO ACHIEVE GOAL RASS Stop: 12/06/17 09:19 Last Admin: 11/07/17 09:39 Dose: 1,000 mg Propofol (Diprivan Bolus) 20 mg IV Q5MIN PRN PRN Reason: BREAKTHROUGH AGITATION Stop: 12/06/17 09:19 Senna (Senokot) 2 tab PER TUBE HSPRN PRN PRN Reason: Constipation Sodium Chloride (Flush - Normal Saline) 10 ml IVF PRN PRN PRN Reason: Saline Flush
[2017-11-07 12:12] LABS: Anion Gap 16 mmol/L (10-20); BUN (Urea Nitrogen) 50 mg/dL (8.4-25.7); Calc. Creatinine Clearance 37 mL/min (70-130); Calcium 8.2 mg/dL (7.8-10.44); Carbon Dioxide 20 mmol/L (22-29); Chloride 105 mmol/L (98-107); Estimated GFR-MDRD 19; Glucose 80 mg/dL (70-105); Potassium 5.5 mmol/L (3.5-5.1); Sodium 135 mmol/L (136-145)
--- NOTE | 2017-11-07 12:12 | PDOC.CTH ---
Cardiology Progress Note - Subjective He remains intubated, unresponsive. He was started on propofol overnight due to myoclonic jerking. - Objective Vital Signs Temp Pulse Resp BP Pulse Ox 11/07/17 10:26 70 128/66 11/07/17 10:00 31 H 11/07/17 08:48 72 126/66 11/07/17 08:00 92.1 F L 80 31 H 96 11/07/17 07:52 70 140/69 11/07/17 06:00 20 11/07/17 04:00 27 H 11/07/17 02:44 70 11/07/17 02:00 24 H 11/07/17 00:19 70 Admit Weight 238 lb 1.588 oz Weight 238 lb 1.588 oz 11/06/17 11/07/17 11/08/17 06:59 06:59 06:59 Intake Total 2552 Output Total 926 105 Balance 1626 -105 - Physical Examination General/Neuro: other: (Intunbated, sedated.) Neck: no JVD present Lungs: CTA, unlabored respirations Heart: RRR Abdomen: NT/ND Extremities: other: (no edema.) - Telemetry Telemetry Rhythm: Afib HR 70's. - Labs Result Diagrams: 11/07/17 04:41 11/07/17 04:41 Troponin/CKMB CK-MB (CK-2) 3.8 ng/mL (0-6.6) 11/06/17 04:02 Troponin I 3.491 ng/mL (< 0.028) H* 11/06/17 10:10 - Assessment/Plan 1. Seizure disorder. 2. NSTEMI, likely demand ischemia 3. HTN 4. Chronic afib. 5. Hyperkalemia 6. Anoxic brain injury, unclear extent of injury. 7. GIANNI. PLAN: - Continue supportive care. - Neurology consultation pending. - Currently being rewarmed. - Patient is severely ill and would not be unexpected. - Updated family at bedside about situation.
[2017-11-07 12:34] LABS: Actual Bicarbonate (HCO3a) 20.2 mEq/L (22-26); Base Excess (BEa) -8.1 mEq/L (0 (+/-) 2.5); O2 Tension (PaO2) 80.2 mmHg (80.0-100.0); pH, Arterial 7.19 (7.35-7.45)
[2017-11-07 12:35] LABS: Calcium, Ionized 1.1 mmol/L (1.12-1.30); Hematocrit-ABG 36.7 % (42.0-52.0); Hemoglobin (Hb) 11.8 g/dL (14.0-18.0)
[2017-11-07 12:36] LABS: Puncture Site LRA
[2017-11-07] MEDS: Acetaminophen 1,000 MG in Premix Bag 1 BAG IVPB PRN (16:29)
[2017-11-07 20:16] LABS: Anion Gap 21 mmol/L (10-20); BUN (Urea Nitrogen) 59 mg/dL (8.4-25.7); Calc. Creatinine Clearance 32 mL/min (70-130); Calcium 8.1 mg/dL (7.8-10.44); Carbon Dioxide 13 mmol/L (22-29); Chloride 106 mmol/L (98-107); Estimated GFR-MDRD 16; Glucose 82 mg/dL (70-105); Potassium 4.9 mmol/L (3.5-5.1); Sodium 135 mmol/L (136-145)
[2017-11-08] MEDS: Propofol 1,000 MG/100 ML VIAL IV PRN ×4 (00:32→21:38)
[2017-11-08] MEDS: Lorazepam 2 MG/ML VIAL SLOW IVP SCH ×6 (00:32→21:39)
--- NOTE | 2017-11-08 03:11 | CON ---
DATE OF CONSULTATION: 11/07/2017 CONSULTING PHYSICIAN: Leobardo Ragland MD REQUESTING PHYSICIAN: Renae Eduardo MD REASON FOR CONSULTATION: Acute kidney injury and severe hyperkalemia. IMPRESSION: 1. Acute kidney injury. This is likely hemodynamically mediated acute tubular necrosis in the context of cardiac arrest. 2. Hyperkalemia, likely related to metabolic acidosis with cellular shift of potassium out of the cells into the intravascular space. 3. Status post cardiac arrest in the context of seizure. PLAN: 1. Patient currently coming out of hypothymic protocol and has received medical management of hyperkalemia. We will not initiate any aggressive intervention in the way of hemodialysis at this point until the patient fully comes out of the hypothermia protocol, at which point, the renal function and the potassium will now be reevaluated and decision will be taken accordingly. 2. Had extensive discussion with the family, intimating them that there is no emergent indication at this point for hemodialysis; however, if patient's renal function continues to deteriorate, resulting in persistent worsening hyperkalemia. This modality of treatment will become indicated especially if the patient's cerebral function is preserved. 3. Further management will be dependent on the clinical course. HISTORY OF PRESENT ILLNESS: A 62-year-old gentleman who was found to be having seizures and was noted to have no pulse, but maintained electrical activity. The patient was evaluated by the EMS, got intubated in the field, brought to the ER where ACLS was continued, resulting in spontaneous baptist of circulation. The patient admitted to ICU undergoing hypothermic protocol. The patient was noted to have severe hyperkalemia with potassium of 6.7 and worsening renal dysfunction. As a result of this finding, decision has been taken to involve renal in the management of this case. PAST MEDICAL HISTORY: Significant for; 1. Seizure disorder, coagulopathy. 2. Status post CABG x4 vessels. 3. Status post valvular replacement and pacemaker. FAMILY HISTORY: No family history of kidney disease. MEDICATIONS: Reviewed and as documented on [facility]. SOCIAL HISTORY: The patient is . No alcohol, no tobacco, no illicit drug use. REVIEW OF SYSTEMS: Review of systems could not be obtained from this patient who is intubated. PHYSICAL EXAMINATION: GENERAL: The patient was found to be intubated. VITAL SIGNS: Blood pressure 139/62, pulse 77, respiratory rate of 15, O2 sat of 98% with the temperature of 101.7. HEENT: Remarkable for endotracheal tube in place. CARDIOVASCULAR SYSTEM: First and second heart sounds were heard. RESPIRATORY SYSTEM: Reveals vented sounds. DIGESTIVE SYSTEM: Revealed a benign abdomen. EXTREMITIES: No peripheral edema. SKIN: No new gross rash. LYMPHATICS: No peripheral lymphadenopathy. NEUROLOGIC: Revealed a patient that is still unresponsive. IMPRESSION: A 62-year-old gentleman who developed cardiac arrest in the context of prolonged seizure, who is now experiencing worsening renal function in the context of hemodynamically mediated acute tubular necrosis. Thank you for this consultation. We will follow with you. RENEE
[2017-11-08 04:22] LABS: #Eosinphils 0.1 thou/uL (0.0-0.7); #Lymphocytes 1.1 thou/uL (1.20-3.40); #Monocytes 0.9 thou/uL (0.11-0.59); #Neutrophils 12.5 thou/uL (1.40-6.50); %Eosinophils 0.6 % (0.0-10.0); %Lymphocytes 7.7 % (21.0-51.0); %Monocytes 5.9 % (0.0-10.0); %Neutrophils 85.8 % (42.0-75.0); Hemoglobin 11.4 g/dL (14.0-18.0); Mean Corpuscular HGB CONC 36.5 g/dL (32.0-36.0); Mean Corpuscular Hemoglobin 33.9 pg (27.0-31.0); Mean Corpuscular Volume 92.8 fl (80.0-94.0); Mean Platelet Volume 6.2 fL (7.4-10.4); Platelet Count 145 thou/uL (130-400); RBC Distribution Width 12.8 % (11.5-14.5); Red Blood Cell (RBC) Count 3.35 mill/uL (4.70-6.10); White Blood Cell (WBC) Count 14.5 thou/uL (4.8-10.8)
[2017-11-08 04:33] LABS: Anion Gap 18 mmol/L (10-20); BUN (Urea Nitrogen) 64 mg/dL (8.4-25.7); Calc. Creatinine Clearance 27 mL/min (70-130); Carbon Dioxide 16 mmol/L (22-29); Chloride 105 mmol/L (98-107); Estimated GFR-MDRD 14; Glucose 105 mg/dL (70-105); Potassium 5.1 mmol/L (3.5-5.1); Sodium 134 mmol/L (136-145)
[2017-11-08] MEDS: Acetaminophen 1,000 MG in Premix Bag 1 BAG IVPB PRN ×2 (04:41→09:44)
[2017-11-08 07:54] LABS: pH, Arterial 7.48 (7.35-7.45)
[2017-11-08 07:55] LABS: Actual Bicarbonate (HCO3a) 13.8 mEq/L (22-26); Base Excess (BEa) -7.7 mEq/L (0 (+/-) 2.5); Hematocrit-ABG 34.4 % (42.0-52.0); Hemoglobin (Hb) 11.3 g/dL (14.0-18.0)
[2017-11-08 07:56] LABS: Puncture Site RRA
[2017-11-08] MEDS: Sodium Chloride 0.9% 1,000 ML IV SCH (08:08)
[2017-11-08] MEDS: levETIRAcetam In NaCl (Iso-Os) 1,000 MG in Premix Bag 1 BAG IVPB SCH ×2 (08:55→21:38)
[2017-11-08] MEDS: Pantoprazole 40 MG VIAL IVP SCH (08:58)
[2017-11-08] MEDS ORDERED: cefTRIAXone\\ROCEPHIN 1 GM in Sodium Chloride 0.9% 100 ML IVPB SCH (09:15)
--- NOTE | 2017-11-08 09:35 | PRG ---
DATE OF VISIT: 11/08/2017 NEUROLOGIC FOLLOWUP NOTE CONSULTING PHYSICIAN: Hospitalist Service. HISTORY OF PRESENT ILLNESS: Mr. Villela is a prior patient of mine for treatment of his epilepsy. Keyur mercado apparently had a seizure and secondary cardiac arrest. The family started CPR at home and there wa s some positive resuscitative efforts made. He had a second cardiac arrest and continued CPR and sub sequently, he regained a pulse. He was treated with a cooling protocol and has now been warmed. Yes terday reportedly, he was responding somewhat to commands and following the family's wishes to squeez e her hands. Unfortunately, today he does not seem to be responsive whatsoever. His pupils are nonr esponsive. His doll's head maneuver does not show any deviation. There is no corneal response to st imulation, could not elicit any gag response to stimulation with the tracheal tube. There is no pain response in the extremities. He still has respiratory drive. Patient appears to be deteriorating compared to what was noted yesterday. I have discussed this with the family that there is a poor prognosis for any functional recovery. They would like to continue supportive efforts at this point. Given his renal failure, he may need hemodialysis. At this point, I do not think he is clinically brain , but this may continue to worsen. Reassess him tomorrow.
--- NOTE | 2017-11-08 09:52 | RAD ---
CHEST 1 VIEW: Date: 11/08/17 HISTORY: Dyspnea. Follow-up. COMPARISON: 11/07/17. FINDINGS: Cardiac silhouette is magnified, enlarged, and now partially obscured by increasing patchy bibasilar infiltrates. Bilateral perihilar infiltrates have also increased with pulmonary vascular congestion. Mediastinum is midline. Lines and tubes appear unchanged in position. No evidence of pneumothorax. IMPRESSION: Worsening pulmonary edema. POS: [facility]
[2017-11-08] MEDS: cefTRIAXone\\ROCEPHIN 1 GM, Syringe 0.4 ML in Sterile Water 9.6 ML SLOW IVP SCH (10:02)
--- NOTE | 2017-11-08 11:04 | PDOC.PN ---
- Subjective Encounter Start Date: 11/08/17 Encounter Start Time: 09:50 Patient seen and examined for cardiac arrest. No overnight events - Objective MAR Reviewed: Yes Vital Signs & Weight: Vital Signs (12 hours) Temp Pulse Resp BP 11/08/17 10:00 29 H 11/08/17 07:22 79 145/74 H 11/08/17 07:00 99.1 F 11/08/17 06:00 30 H 11/08/17 04:00 30 H 11/08/17 03:16 80 11/08/17 02:00 30 H 11/08/17 00:00 30 H Weight Admit Weight 238 lb 1.588 oz Weight 238 lb 1.588 oz Most Recent Monitor Data Heart Rate from ECG 79 NIBP 167/75 NIBP BP-Mean 90 Respiration from ECG 32 SpO2 95 I&O: 11/07/17 11/08/17 11/09/17 06:59 06:59 06:59 Intake Total 2552 2586 100 Output Total 926 540 145 Balance 1626 2046 -45 Result Diagrams: 11/08/17 04:12 11/08/17 04:12 Radiology Reviewed by me: Yes (chest xray-pulmonary edema) EKG Reviewed by me: Yes (pacing) Phys Exam - Physical Examination Constitutional: NAD intubated, sedation on hold for 1 hour Neck: no JVD, supple coarse sound+ Cardiovascular: irregular SM+, prosthetic sound+ Gastrointestinal: soft, no distention, positive bowel sounds Musculoskeletal: pulses present, edema present Lymphatic: no nodes Skin: no rash, normal turgor Dx/Plan (1) Acute respiratory failure with hypoxemia Code(s): J96.01 - ACUTE RESPIRATORY FAILURE WITH HYPOXIA Status: Acute (2) Cardiac arrest Code(s): I46.9 - CARDIAC ARREST, CAUSE UNSPECIFIED Status: Acute (3) Demand ischemia of myocardium Code(s): I24.8 - OTHER FORMS OF ACUTE ISCHEMIC HEART DISEASE Status: Acute (4) Lactic acidosis Code(s): E87.2 - ACIDOSIS Status: Acute (5) Chronic anticoagulation Code(s): Z79.01 - FPC (CURRENT) USE OF ANTICOAGULANTS Status: Chronic (6) H/O heart valve replacement with mechanical valve Code(s): Z95.2 - PRESENCE OF PROSTHETIC HEART VALVE Status: Chronic (7) Obesity (BMI 30-39.9) Code(s): E66.9 - OBESITY, UNSPECIFIED Status: Chronic (8) Pacemaker Code(s): Z95.0 - PRESENCE OF CARDIAC PACEMAKER Status: Chronic (9) Acute kidney failure Status: Acute (10) Hyperkalemia Code(s): E87.5 - HYPERKALEMIA Status: Acute (11) Chronic atrial fibrillation Code(s): I48.2 - CHRONIC ATRIAL FIBRILLATION Status: Chronic (12) Chronic systolic (congestive) heart failure Code(s): I50.22 - CHRONIC SYSTOLIC (CONGESTIVE) HEART FAILURE Status: Chronic (13) Pulmonary edema Code(s): J81.1 - CHRONIC PULMONARY EDEMA Status: Acute - Plan cont current plan of care, plan discussed w/ family * renal function is still going up, family ready for HD if needed , nephrology following to decide that * LK is normal but pulmonary edema is getting worse, he also has low EF and edema leg, getting fluid overloaded, making little urine output, he may need HD * family does not want to give up at this point, they wanted to do all possible and give him chance to recover, but based on all consultants prognosis is very poor * as pt has mechanical aortic valve, will ask cardiology if anticoagulation will be started back or not * currently on hold propofol for 1 hour, which was started for myoclonic jerk * medication reviewed as below * symptomatic treatment * I had lengthy discussion with entire family. Review of Systems - Review of Systems Other: unable to review as pt is intubated and unresponsive - Medications/Allergies Allergies/Adverse Reactions: Allergies Allergy/AdvReac Type Severity Reaction Status Date / Time No Known Allergies Allergy Verified 11/06/17 09:00 Medications: Current Medications Acetaminophen (Tylenol) 650 mg PER TUBE Q4H PRN PRN Reason: Headache/Fever or Mild Pain Acetaminophen (Tylenol) 650 mg ID Q4H PRN PRN Reason: Headache/Fever or Mild Pain Al Hydroxide/Mg Hydroxide (Maalox) 15 ml PER TUBE Q4H PRN PRN Reason: Heartburn or Indigestion Artificial Tears (Tears Naturale) 0 drop EA EYE PRN PRN PRN Reason: Dry Eyes Bisacodyl (Dulcolax) 10 mg ID DAILYPRN PRN PRN Reason: Constipation Carvedilol (Coreg) 25 mg PO BID CITLALI Guaifenesin (Robitussin Sf) 200 mg PER TUBE Q4H PRN PRN Reason: Cough Hydralazine HCl (Apresoline) 10 mg SLOW IVP Q4H PRN PRN Reason: Systolic BP > 180 Epinephrine 1 mg/Miscellaneous Medication 1 each/ Dextrose/Water 251 mls @ 0 mls/hr IVPB INF CITLALI; Titrate PRN Reason: Protocol Levetiracetam 1,000 mg/ Device 100 mls @ 200 mls/hr IVPB BID CITLALI Last Admin: 11/08/17 08:55 Dose: 100 mls Fentanyl Citrate 2,000 mcg/ (Sodium Chloride) 100 mls @ 0 mls/hr IV INF CITLALI; Per Protocol PRN Reason: Protocol Stop: 12/06/17 09:19 Last Admin: 11/06/17 22:16 Dose: 100 mls Fentanyl Citrate (Fentanyl Bolus) 250 mls @ 0 mls/hr IVPB PRN PRN; As Directed PRN Reason: Breakthrough pain/agitation Stop: 12/06/17 09:19 Sodium Chloride (Normal Saline 0.9%) 1,000 mls @ 70 mls/hr IV .[id number] [facility] Last Admin: 11/08/17 08:08 Dose: Not Given Acetaminophen 1,000 mg/ Device 100 mls @ 400 mls/hr IVPB Q6H PRN PRN Reason: Fever Stop: 11/08/17 16:16 Last Admin: 11/08/17 09:44 Dose: 100 mls Ceftriaxone Sodium 1 gm/ (Syringe 0.4 ml/ Sterile Water) 10 mls @ 120 mls/hr SLOW IVP 1000 CITLALI Last Admin: 11/08/17 10:02 Dose: 10 mls Lorazepam (Ativan) 2 mg SLOW IVP Q4HR CITLALI Last Admin: 11/08/17 08:12 Dose: Not Given Lorazepam (Ativan) 2 mg SLOW IVP Q1H PRN PRN Reason: Breakthrough agitation Stop: 12/06/17 09:19 Last Admin: 11/06/17 17:53 Dose: 2 mg Magnesium Hydroxide (Milk Of Magnesium) 30 ml PER TUBE DAILYPRN PRN PRN Reason: Constipation Mineral Oil/White Petrolatum (Eucerin Cream) 0 gm TOP BIDPRN PRN PRN Reason: Dry Skin Morphine Sulfate (Morphine) 2 mg SLOW IVP Q1H PRN PRN Reason: breakthrough pain/agitation Stop: 12/06/17 09:19 Ondansetron HCl (Zofran Odt) 4 mg SL Q6H PRN PRN Reason: Nausea/Vomiting Ondansetron HCl (Zofran) 4 mg IVP Q6H PRN PRN Reason: Nausea/Vomiting Pantoprazole Sodium (Protonix) 40 mg IVP DAILY CITLALI Last Admin: 11/08/17 08:58 Dose: 40 mg Propofol (Diprivan) 1,000 mg IV INF PRN; Protocol PRN Reason: TO ACHIEVE GOAL RASS Stop: 12/06/17 09:19 Last Admin: 11/08/17 04:28 Dose: 1,000 mg Propofol (Diprivan Bolus) 20 mg IV Q5MIN PRN PRN Reason: BREAKTHROUGH AGITATION Stop: 12/06/17 09:19 Senna (Senokot) 2 tab PER TUBE HSPRN PRN PRN Reason: Constipation Sodium Chloride (Flush - Normal Saline) 10 ml IVF PRN PRN PRN Reason: Saline Flush Last Admin: 11/08/17 08:55 Dose: 10 ml
--- NOTE | 2017-11-08 11:40 | PDOC.CTH ---
Cardiology Progress Note - Subjective He remains unresponsive, no purposeful movements. Pupils dilated not reactive to light. - Objective Vital Signs Temp Pulse Resp BP 11/08/17 11:32 72 161/62 H 11/08/17 10:00 29 H 11/08/17 07:22 79 145/74 H 11/08/17 07:00 99.1 F 11/08/17 06:00 30 H 11/08/17 04:00 30 H 11/08/17 03:16 80 11/08/17 02:00 30 H 11/08/17 00:00 30 H Admit Weight 238 lb 1.588 oz Weight 238 lb 1.588 oz 11/07/17 11/08/17 11/09/17 06:59 06:59 06:59 Intake Total 2552 2586 100 Output Total 926 540 195 Balance 1626 2046 -95 - Physical Examination General/Neuro: other: (Intubated, ) Neck: no JVD present Lungs: CTA Heart: RRR Abdomen: NT/ND Extremities: other: (no edema.) - Telemetry Telemetry Rhythm: NSR - Labs Result Diagrams: 11/08/17 04:12 11/08/17 04:12 Troponin/CKMB CK-MB (CK-2) 3.8 ng/mL (0-6.6) 11/06/17 04:02 Troponin I 3.491 ng/mL (< 0.028) H* 11/06/17 10:10 - Assessment/Plan 1. Seizure disorder. 2. NSTEMI, likely demand ischemia 3. HTN 4. Chronic afib. 5. Hyperkalemia 6. Anoxic brain injury 7. GIANNI. PLAN: - Continue supportive care. - Anoxic brain injury is likely severe, unlikely to survive this episode. - Updated family at bedside about situation.
--- NOTE | 2017-11-08 13:17 | PRG ---
DATE OF SERVICE: 11/08/2017 SUBJECTIVE: This morning, his sedation was withheld. He is pretty much unresponsive. Pupils are 2 mm. OBJECTIVE: VITAL SIGNS: Pulse is 79, blood pressure is 163/73, sats are 96%, respiratory rate is 34. He was on bilevel yesterday. His I's and O's are 2586 in, 540 out. His temperature is 101.2. CHEST: Reveals bilateral rhonchi. CARDIAC: Sinus tachycardia. ABDOMEN: Soft, without any masses. EXTREMITIES: Reveal trace edema. X-RAY FINDINGS: X-ray now shows bilateral pleural effusion. LABORATORY DATA: White count 14,000, H&H is 9 and 31, platelet count 145, pO2 is 137, pCO2 19, pH 7. 48 on a bilevel. BUN and creatinine are 64 and 4.4, potassium is 5.1. IMPRESSION: 1. Anoxic respiratory failure. 2. Status post pulseless electrical activity. 3. Bilateral pleural effusion. 4. Cardiomyopathy. 5. Renal failure. PLAN: Neurology came to see the patient on day #3, told the family that the patient was in a vegetat rich state. I am trying to withhold the sedation as long as he is not very tachypneic. We will hold off. Long-term prognosis is grave. Family still wants everything to be done including CPR etc., and dialy sis. Empiric antibiotics is going to be initiated today. One-half hour critical care time.
[2017-11-08] MEDS: Acetaminophen 650 MG/20.3 ML UDCUP PER TUBE PRN ×3 (17:39→21:38)
[2017-11-08] MEDS: Lorazepam 2 MG/ML VIAL SLOW IVP PRN (21:38)
[2017-11-08] MEDS: Carvedilol 25 MG TAB PO SCH (21:38)
--- NOTE | 2017-11-08 22:01 | PRG ---
DATE OF SERVICE: 11/08/2017 SUBJECTIVE: The patient seen and examined, still vent dependent. OBJECTIVE: VITAL SIGNS: Afebrile with temperature 99.1, pulse 79, respiratory rate of 29, blood pressure 145/74 . HEENT: Unremarkable. CARDIOVASCULAR: First and second heart sounds were heard. RESPIRATORY: Revealed vented sounds. DIGESTIVE: Revealed an obese abdomen. EXTREMITIES: No peripheral edema. SKIN: No new gross rash. LYMPHATICS: No peripheral lymphadenopathy. NEUROLOGIC: The patient is unresponsive. LABORATORY: White count 90490, hemoglobin 11.4. Chemistry showed a potassium of 5.1, bicarbonate of 16, BUN of 64 with a creatinine of 4.40. IMPRESSION: 1. Dense acute tubular necrosis, anuric in the context of cardiac arrest. 2. Hyperkalemia, resolved. 3. Metabolic acidosis. 4. Seizure disorder. 5. Pulmonary congestion. PLAN: 1. No emergent indication at this point for renal replacement therapy (hemodialysis as hyperkalemia seems to have improved); however, pulmonary congestion and respiratory failure might be the only othe r indication down the road. However, the cerebral function of this patient has to be established yeimi t is intact, but from all indication especially from neurology assessment, the patient seems to be in a vegetative state though the family has not really come to transfer with these. I do believe there is some form of imaging studies to rule out, which he states is in the wall. I will await the resul t of these and the final decision of the family prior to ever considering renal replacement therapy. 2. Discontinue IV fluid as the patient's pulmonary congestion is getting worse. 3. Further management to be dependent on the clinical course.
[2017-11-09] MEDS: Lorazepam 2 MG/ML VIAL SLOW IVP SCH ×6 (00:34→21:51)
[2017-11-09] MEDS: fentaNYL Citrate/PF 2,000 MCG in Sodium Chloride 0.9% 60 ML IV SCH (02:21)
[2017-11-09] MEDS: Propofol 1,000 MG/100 ML VIAL IV PRN ×4 (02:44→15:48)
[2017-11-09 05:41] LABS: #Eosinphils 0.2 thou/uL (0.0-0.7); #Lymphocytes 0.8 thou/uL (1.20-3.40); #Monocytes 0.7 thou/uL (0.11-0.59); #Neutrophils 10.2 thou/uL (1.40-6.50); %Basophils 0.1 % (0.0-1.0); %Eosinophils 1.5 % (0.0-10.0); %Lymphocytes 6.8 % (21.0-51.0); %Monocytes 5.6 % (0.0-10.0); Hemoglobin 10.1 g/dL (14.0-18.0); Mean Corpuscular HGB CONC 34.4 g/dL (32.0-36.0); Mean Corpuscular Hemoglobin 32.9 pg (27.0-31.0); Mean Corpuscular Volume 95.4 fl (80.0-94.0); Mean Platelet Volume 5.9 fL (7.4-10.4); Platelet Count 142 thou/uL (130-400); RBC Distribution Width 12.9 % (11.5-14.5); Red Blood Cell (RBC) Count 3.07 mill/uL (4.70-6.10); White Blood Cell (WBC) Count 11.9 thou/uL (4.8-10.8)
[2017-11-09 06:01] LABS: Anion Gap 16 mmol/L (10-20); BUN (Urea Nitrogen) 80 mg/dL (8.4-25.7); Calc. Creatinine Clearance 21 mL/min (70-130); Calcium 7.9 mg/dL (7.8-10.44); Carbon Dioxide 18 mmol/L (22-29); Chloride 106 mmol/L (98-107); Estimated GFR-MDRD 10; Glucose 92 mg/dL (70-105); Potassium 5.2 mmol/L (3.5-5.1); Sodium 135 mmol/L (136-145)
[2017-11-09 07:47] LABS: Actual Bicarbonate (HCO3a) 16.1 mEq/L (22-26); Base Excess (BEa) -9.5 mEq/L (0 (+/-) 2.5); CO2 Tension 33.7 mmHg (35.0-45.0); Hematocrit-ABG 30.2 % (42.0-52.0); Hemoglobin (Hb) 9.8 g/dL (14.0-18.0); O2 Tension (PaO2) 126.8 mmHg (80.0-100.0)
[2017-11-09 07:48] LABS: ALV-art Gradient 149.675 (0-20); Calcium, Ionized 1.1 mmol/L (1.12-1.30); Puncture Site LB
--- NOTE | 2017-11-09 08:27 | PRG ---
DATE OF SERVICE: 11/09/2017 He remains intubated on the vent on Diprivan. PHYSICAL EXAMINATION: VITAL SIGNS: Pulse 71, blood pressure is 112/56, sats are 98%, respirations 35 in spite of being sed ated. He remains encephalopathic tachypneic and tachycardic. I's and O's are 1604 in, 1200 out. CHEST: Anterior rhonchi. CARDIAC: Sinus tachycardia. ABDOMEN: Distended, soft. NEURO: Neurologically unresponsive. Pupils are 3 mm, still reacting. LABORATORY: White count 11,000, H&H of 10 and 32, platelet count 142. Blood gas pO2 is 126, pCO2 of 33.30, rate of 14, BUN and creatinine 18 and 5.6, potassium 5.2. IMPRESSION: 1. Status post seizure activity. 2. Anoxic injury. 3. Pulseless electrical activity. 4. Renal failure. PLAN: The patient is not weanable at this stage. We started empiric antibiotics even though his torsten st x-ray is normal. Continue Keppra. Still await input from Neurology. Discussed with family mary rose issues. He remains a full code. One-half hour critical care time.
--- NOTE | 2017-11-09 09:17 | RAD ---
ONE VIEW CHEST: HISTORY: Ventilated patient. Respiratory distress. COMPARISON: 11/08/17. FINDINGS: Nasogastric tube extends beyond the diaphragm. ET tube appears to be at the level of thoracic inlet, just proximal to the clavicles. Stable right-sided transvenous pacemaker. There is cardiomegaly. Pulmonary vessels are normal. Hazy opacification in the right lung base. Patchy interstitial opacit y in the left lung base. The degree of opacification has improved. No pneumothorax. IMPRESSION: 1. Lines and tubes as above. 2. Improved aeration of the lung parenchyma. POS: [facility]
[2017-11-09] MEDS: levETIRAcetam In NaCl (Iso-Os) 1,000 MG in Premix Bag 1 BAG IVPB SCH ×2 (09:42→21:51)
[2017-11-09] MEDS: Carvedilol 25 MG TAB PO SCH ×2 (09:42→21:52)
[2017-11-09] MEDS: cefTRIAXone\\ROCEPHIN 1 GM, Syringe 0.4 ML in Sterile Water 9.6 ML SLOW IVP SCH (09:43)
[2017-11-09] MEDS: Pantoprazole 40 MG VIAL IVP SCH (09:43)
[2017-11-09] MEDS: Scopolamine 1.5 mg/72 hour Patch TD SCH (09:43)
--- NOTE | 2017-11-09 10:11 | PDOC.PN ---
- Subjective Encounter Start Date: 11/09/17 Encounter Start Time: 10:50 -: non-verbal Subjective: Patient unchanged overnight. No response to family. - Objective MAR Reviewed: Yes Vital Signs & Weight: Vital Signs (12 hours) Temp Pulse Resp BP Pulse Ox 11/09/17 08:05 71 112/56 L 11/09/17 08:00 99.3 F 71 16 95 11/09/17 06:00 27 H 11/09/17 04:00 27 H 11/09/17 02:57 72 11/09/17 02:00 34 H 11/09/17 00:00 37 H 11/08/17 22:41 79 Weight Admit Weight 238 lb 1.588 oz Weight 233 lb 7.512 oz Most Recent Monitor Data Heart Rate from ECG 70 NIBP 117/56 NIBP BP-Mean 74 Respiration from ECG 22 SpO2 92 I&O: 11/08/17 11/09/17 11/10/17 06:59 06:59 06:59 Intake Total 2586 1604.8 Output Total 540 1200 90 Balance 2046 404.8 -90 Result Diagrams: 11/09/17 05:35 11/09/17 05:35 Phys Exam - Physical Examination Intubated HEENT: moist MMs Pupils 3mm bilaterally, round, possible small amount of reaction to light, still with doll's eyes Respiratory: no wheezing, no rales, no rhonchi Cardiovascular: RRR Gastrointestinal: soft no responsiveness Deviation from normal: comatose on vent Dx/Plan (1) Cardiac arrest Code(s): I46.9 - CARDIAC ARREST, CAUSE UNSPECIFIED Status: Acute Comment: with ROSC (2) Acute kidney failure Status: Acute Qualifiers: Acute renal failure type: with acute tubular necrosis Qualified Code(s): N17.0 - Acute kidney failure with tubular necrosis Comment: May need dialysis, nephrology following (3) Acute respiratory failure with hypoxemia Code(s): J96.01 - ACUTE RESPIRATORY FAILURE WITH HYPOXIA Status: Acute Comment: on vent, not weanable at this point (4) Demand ischemia of myocardium Code(s): I24.8 - OTHER FORMS OF ACUTE ISCHEMIC HEART DISEASE Status: Acute (5) Pulmonary edema Code(s): J81.1 - CHRONIC PULMONARY EDEMA Status: Acute Qualifiers: Chronicity: acute Qualified Code(s): J81.0 - Acute pulmonary edema (6) Chronic atrial fibrillation Code(s): I48.2 - CHRONIC ATRIAL FIBRILLATION Status: Chronic (7) H/O heart valve replacement with mechanical valve Code(s): Z95.2 - PRESENCE OF PROSTHETIC HEART VALVE Status: Chronic (8) Obesity (BMI 30-39.9) Code(s): E66.9 - OBESITY, UNSPECIFIED Status: Chronic (9) Anoxic brain injury Status: Acute Comment: Not brain per neurology but deteriorating, Dr. Nelson following - Plan cont current plan of care, continue antibiotics, respiratory therapy EEG done this AM, awaiting report * . - Discharge Day Encounter end time: 11:20
--- NOTE | 2017-11-09 10:23 | PDOC.CTH ---
<Lizbet Hudson - Last Filed: 11/09/17 10:44> Cardiology Progress Note - Subjective The pt seen and examined. No overnight events. The pt did not responded to any pain stimulation at this moment. He is off sedation and on EEG. - Objective Vital Signs Temp Pulse Resp BP Pulse Ox 11/09/17 08:05 71 112/56 L 11/09/17 08:00 99.3 F 71 16 95 11/09/17 06:00 27 H 11/09/17 04:00 27 H 11/09/17 02:57 72 11/09/17 02:00 34 H 11/09/17 00:00 37 H 11/08/17 22:41 79 Admit Weight 238 lb 1.588 oz Weight 233 lb 7.512 oz 11/08/17 11/09/17 11/10/17 06:59 06:59 06:59 Intake Total 2586 1604.8 Output Total 540 1200 90 Balance 2046 404.8 -90 - Physical Examination General/Neuro: alert & oriented x3 Lungs: CTA Heart: other: (irregular) Abdomen: soft Extremities: other: (no edema) - Telemetry Telemetry Rhythm: AFib 90s - Labs Result Diagrams: 11/09/17 05:35 11/09/17 05:35 Troponin/CKMB CK-MB (CK-2) 3.8 ng/mL (0-6.6) 11/06/17 04:02 Troponin I 3.491 ng/mL (< 0.028) H* 11/06/17 10:10 - Assessment/Plan 1. Cardiac arrest with Anoxic Brain injury - with ROSC; AICD interrogation showed normal without any discharges. Evaluating with EEG at this moment 2. Seizure - He is on Keppra 3. NSTEMI - likely demand ischemia 4. HTN - stable; cont. to monitor 5. Chronic Afib - Rate well controlled. Cont. to monitor on tele 6. GIANNI - managed by culturist 7. H/O AVR with mechanical valve - stable 8. Non-ischemic alcoholic CMY with AICD placement - Echo on 11/06/17 showed EF 40-45%, mild BALTA, mod dilated LA, mild MR, and mild TR 9. Hx of Cirrhosis - MAR reviewed Review of Systems - Review of Systems Constitutional: reports: see HPI EENTM: reports: see HPI Respiratory: reports: see HPI Cardiac (ROS): reports: see HPI ABD/GI: reports: see HPI : reports: see HPI Musculoskeletal: reports: see HPI <Heena Walsh - Last Filed: 11/09/17 17:59> Cardiology Progress Note - Objective Vital Signs Temp Pulse Resp BP Pulse Ox 11/09/17 16:16 71 103/52 L 11/09/17 16:00 31 H 11/09/17 14:00 28 H 11/09/17 13:17 70 90/50 L 11/09/17 12:00 27 H 11/09/17 11:29 70 95/48 L 11/09/17 10:00 28 H 11/09/17 08:05 71 112/56 L 11/09/17 08:00 99.3 F 71 16 95 11/09/17 06:00 27 H Admit Weight 238 lb 1.588 oz Weight 233 lb 7.512 oz 11/08/17 11/09/17 11/10/17 06:59 06:59 06:59 Intake Total 2586 1604.8 389 Output Total 540 1200 405 Balance 2046 404.8 -16 - Labs Result Diagrams: 11/09/17 05:35 11/09/17 05:35 Troponin/CKMB CK-MB (CK-2) 3.8 ng/mL (0-6.6) 11/06/17 04:02 Troponin I 3.491 ng/mL (< 0.028) H* 11/06/17 10:10 - Assessment/Plan Pt. seen and evaluated by me. i agree with the A/P by the [employer]. Waiting for the EEG results. Prognosis appears terminal. Chest : coarse rhonchi. RRR.
[2017-11-09] MEDS ORDERED: Norepinephrine 8 MG/0.9% NS 250 ML ONE (20:12)
[2017-11-09] MEDS ORDERED: Norepinephrine 8 MG/250 ML BAG IVPB PRN (20:20)
--- NOTE | 2017-11-10 00:08 | PRG ---
DATE OF SERVICE: 11/09/2017 SUBJECTIVE: The patient was seen and examined, still unresponsive, noted with the following vital si gns. OBJECTIVE: VITAL SIGNS: Afebrile, temperature 99.3, pulse 71, respiratory rate of 16, blood pressure 102/56, O2 sat 95%. HEENT: Remarkable for endotracheal tube in place. The patient is currently undergoing EEG evaluatio n. CARDIOVASCULAR: First and second heart sounds were heard. RESPIRATORY: Revealed vented sounds. DIGESTIVE: Revealed a benign abdomen. EXTREMITIES: No peripheral edema. SKIN: No new gross rash. LABORATORY INVESTIGATION: Showed hemoglobin of 10.1. Chemistry showed potassium of 5.2, sodium 135, creatinine of 5.62, BUN of 80 with a bicarbonate of 18. IMPRESSION: 1. Dense acute tubular necrosis virtually anuric, status post cardiac arrest. 2. Metabolic acidosis. 3. Hyperkalemia. 4. Anoxic brain injury. PLAN: Awaiting EEG result and Neurology inputs as he relates to the viability of cerebral function i n this patient prior to initiating possible aggressive treatment including hemodialysis, but no emerg ent indication at this point for hemodialysis. Further management to be dependent on the clinical co loy.
[2017-11-10] MEDS: Lorazepam 2 MG/ML VIAL SLOW IVP SCH ×7 (01:20→22:51)
[2017-11-10 05:56] LABS: #Eosinphils 0.3 thou/uL (0.0-0.7); #Lymphocytes 0.5 thou/uL (1.20-3.40); #Monocytes 0.7 thou/uL (0.11-0.59); #Neutrophils 9.9 thou/uL (1.40-6.50); %Eosinophils 2.5 % (0.0-10.0); %Lymphocytes 4.4 % (21.0-51.0); %Monocytes 6.5 % (0.0-10.0); %Neutrophils 86.7 % (42.0-75.0); Hemoglobin 10.3 g/dL (14.0-18.0); Mean Corpuscular HGB CONC 35.3 g/dL (32.0-36.0); Mean Corpuscular Hemoglobin 33.6 pg (27.0-31.0); Mean Corpuscular Volume 95.2 fl (80.0-94.0); Mean Platelet Volume 5.9 fL (7.4-10.4); Platelet Count 155 thou/uL (130-400); RBC Distribution Width 12.7 % (11.5-14.5); Red Blood Cell (RBC) Count 3.07 mill/uL (4.70-6.10); White Blood Cell (WBC) Count 11.4 thou/uL (4.8-10.8)
[2017-11-10 06:08] LABS: Anion Gap 19 mmol/L (10-20); BUN (Urea Nitrogen) 101 mg/dL (8.4-25.7); Calc. Creatinine Clearance 16 mL/min (70-130); Calcium 8.2 mg/dL (7.8-10.44); Carbon Dioxide 18 mmol/L (22-29); Chloride 105 mmol/L (98-107); Estimated GFR-MDRD 9; Glucose 81 mg/dL (70-105); Potassium 5.9 mmol/L (3.5-5.1); Sodium 136 mmol/L (136-145)
[2017-11-10] MEDS: Acetaminophen 650 MG/20.3 ML UDCUP PER TUBE PRN (06:53)
[2017-11-10 08:17] LABS: Base Excess (BEa) -10.5 mEq/L (0 (+/-) 2.5); CO2 Tension 31.7 mmHg (35.0-45.0); Hematocrit-ABG 27.1 % (42.0-52.0); Hemoglobin (Hb) 8.6 g/dL (14.0-18.0); pH, Arterial 7.29 (7.35-7.45)
--- NOTE | 2017-11-10 08:17 | PRG ---
DATE OF SERVICE: 11/10/2017 VITAL SIGNS: Blood pressure 120/51, sats 90%, respirations 18, temperature 100.8. GENERAL: He remains unresponsive. Sedation is being withheld this morning. His I's and O's are 1604 in, 1200 out. CHEST: Chest revealed bilateral rhonchi. CARDIAC: Normal S1, S2, no gallops. ABDOMEN: Soft, no masses. LABORATORY DATA: White count 11,000, H&H 10 and 29, platelet count 155, BUN and creatinine 100 and 6 .4, potassium 5.9. IMPRESSION: 1. Multiorgan failure. 2. Anoxic injury. 3. Seizure disorder. 4. Renal failure. 5. History of seizures. PLAN: We are still awaiting input from Neurology regarding his EEG results. He has clearly anoxic injury. Her prognosis is grave. Will discuss with family, ongoing issues. I am not so sure dialysis would be of any benefit. In the meantime, continue empiric antibiotics, supportive care. One-half hour critical care time.
[2017-11-10 08:18] LABS: ALV-art Gradient 82.775 (0-20); Calcium, Ionized 1.1 mmol/L (1.12-1.30); Puncture Site LRA
--- NOTE | 2017-11-10 08:44 | PDOC.CTH ---
<Lizbet Hudson - Last Filed: 11/10/17 08:40> Cardiology Progress Note - Subjective The pt seen and examined. He was on Levophed until around 0500 for Hypotension. His BP is stable without Levophed at this moment. EEG was done yesterday and the result is pending at this moment. Per RN, the pt breaths over the vent and had gag reflux x 1 this AM; however, No response to any pain stimulation at this moment. He is off sedation. - Objective Vital Signs Temp Pulse Resp BP 11/10/17 08:03 72 103/72 11/10/17 08:00 18 11/10/17 06:00 14 11/10/17 04:00 99.7 F H 14 11/10/17 02:38 77 11/10/17 02:00 14 11/10/17 00:00 99.1 F 14 11/09/17 22:24 70 11/09/17 22:00 14 Admit Weight 238 lb 1.588 oz Weight 204 lb 2.369 oz 11/09/17 11/10/17 11/11/17 06:59 06:59 06:59 Intake Total 1604.8 958 Output Total 1200 671 80 Balance 404.8 287 -80 - Physical Examination Lungs: other: (coases and diminished at bases; ET tube) Heart: other: (pacing) Abdomen: soft Extremities: other: (generalized edema) - Telemetry Telemetry Rhythm: V paced - Labs Result Diagrams: 11/10/17 05:51 11/10/17 05:51 Troponin/CKMB CK-MB (CK-2) 3.8 ng/mL (0-6.6) 11/06/17 04:02 Troponin I 3.491 ng/mL (< 0.028) H* 11/06/17 10:10 - Assessment/Plan 1. Cardiac arrest with Anoxic Brain injury - No changed; AICD interrogation showed normal without any discharges. EEG report is pending at this time. 2. Seizure - He is on Keppra; managed by neurologist. 3. NSTEMI - likely demand ischemia; On BBlocker, but no FARZANEH/ARE due to GIANNI; cont. to monitor on tele 4. HTN - was on Levophed until this AM for hypotension; stable at this moment; cont. to monitor 5. Chronic Afib - Rate well controlled. Cont. to monitor on tele 6. GIANNI - managed by professor of medicine 7. H/O AVR with mechanical valve - stable; May resume Coumadin or Heparin later. 8. Non-ischemic alcoholic CMY with AICD placement - Echo on 11/06/17 showed EF 40-45%, mild BALTA, mod dilated LA, mild MR, and mild TR 9. Hx of Cirrhosis - Per the pt's family, the pt has not seen GI for awhile. MAR reviewed Review of Systems - Review of Systems Constitutional: reports: see HPI EENTM: reports: see HPI Respiratory: reports: see HPI <Heena Walsh - Last Filed: 11/10/17 10:03> Cardiology Progress Note - Objective Vital Signs Temp Pulse Resp BP 11/10/17 08:03 72 103/72 11/10/17 08:00 18 11/10/17 06:00 14 11/10/17 04:00 99.7 F H 14 11/10/17 02:38 77 11/10/17 02:00 14 11/10/17 00:00 99.1 F 14 11/09/17 22:24 70 Admit Weight 238 lb 1.588 oz Weight 204 lb 2.369 oz 11/09/17 11/10/17 11/11/17 06:59 06:59 06:59 Intake Total 1604.8 958 Output Total 1200 671 140 Balance 404.8 287 -140 - Labs Result Diagrams: 11/10/17 05:51 11/10/17 05:51 Troponin/CKMB CK-MB (CK-2) 3.8 ng/mL (0-6.6) 11/06/17 04:02 Troponin I 3.491 ng/mL (< 0.028) H* 11/06/17 10:10 - Assessment/Plan Pt. seen and eval. i agree with the A/P by the FAMILY PRACTICE PHYSICIAN. The EEG indicates very little activity.. near brain . The prognosis appears terminal. No overall cardiac change. I sina sign off. If any changes please contact me and I will be happy to visit with him again.
--- NOTE | 2017-11-10 09:09 | RAD ---
CHEST ONE VIEW: History: Intubated patient. Comparison: Prior day. FINDINGS: Patient is intubated with anterior tube tip at the level of the clavicles. Enteric tube tip below the diaphragm out of the field of view. Heart size is enlarged. small effusions. Mild edema. Cardiac device is similar. Cardiac valve replacement is present. IMPRESSION: No significant change in the radiographic appearance of the chest. POS: [facility]
[2017-11-10] MEDS: Pantoprazole 40 MG VIAL IVP SCH (09:10)
[2017-11-10] MEDS: levETIRAcetam In NaCl (Iso-Os) 1,000 MG in Premix Bag 1 BAG IVPB SCH ×2 (09:13→20:56)
--- NOTE | 2017-11-10 09:31 | EEG ---
Referring Physician: MAGO EEG # [id number] TEST TYPE: ROUTINE PORTABLE INPATIENT REPORT: AN EEG USING THE [employer]NATIONAL TEN-TWENTY SYSTEM OF ELECTRODE PLACEMENT WAS PERFORMED. The background activity shows severe suppression over both hemispheres. There is some very low amplitude delta frequency seen intermittently. Photic stimulation was unremarkable. No epileptiform features were present. IMPRESSION: THIS IS AN ABNORMAL EEG FOR THE FINDINGS OF SEVERE SUPPRESSION AND SLOWING CONSISTENT WITH A NEAR BRAIN APPEARANCE. Reinforcing Steel Machine Operator: REYNOLD Middleware Systems Architect: [email or web address] DURAN
[2017-11-10] MEDS: Carvedilol 25 MG TAB PO SCH ×2 (10:07→20:56)
--- NOTE | 2017-11-10 10:33 | PDOC.PN ---
- Subjective Encounter Start Date: 11/10/17 Encounter Start Time: 12:15 -: non-verbal Subjective: No changes overnight. Patient remains unresponsive - Objective MAR Reviewed: Yes Vital Signs & Weight: Vital Signs (12 hours) Temp Pulse Resp BP 11/10/17 10:00 18 11/10/17 08:03 72 103/72 11/10/17 08:00 18 11/10/17 06:00 14 11/10/17 04:00 99.7 F H 14 11/10/17 02:38 77 11/10/17 02:00 14 11/10/17 00:00 99.1 F 14 Weight Admit Weight 238 lb 1.588 oz Weight 204 lb 2.369 oz Most Recent Monitor Data Heart Rate from ECG 72 NIBP 149/59 NIBP BP-Mean 73 Respiration from ECG 20 SpO2 96 I&O: 11/09/17 11/10/17 11/11/17 06:59 06:59 06:59 Intake Total 1604.8 958 Output Total 1200 671 140 Balance 404.8 287 -140 Result Diagrams: 11/10/17 05:51 11/10/17 05:51 Phys Exam - Physical Examination unresponsive off sedation on the vent pupils 2mm bilaterally, no discernable reaction to light, doll's eyes Respiratory: no wheezing, no rales, no rhonchi Cardiovascular: RRR Gastrointestinal: soft no movement or response to pain Deviation from normal: unresponsive Dx/Plan (1) Cardiac arrest Code(s): I46.9 - CARDIAC ARREST, CAUSE UNSPECIFIED Status: Acute Comment: with ROSC (2) Acute kidney failure Status: Acute Qualifiers: Acute renal failure type: with acute tubular necrosis Qualified Code(s): N17.0 - Acute kidney failure with tubular necrosis Comment: May need dialysis, nephrology following (3) Acute respiratory failure with hypoxemia Code(s): J96.01 - ACUTE RESPIRATORY FAILURE WITH HYPOXIA Status: Acute Comment: on vent, not weanable at this point (4) Demand ischemia of myocardium Code(s): I24.8 - OTHER FORMS OF ACUTE ISCHEMIC HEART DISEASE Status: Acute (5) Pulmonary edema Code(s): J81.1 - CHRONIC PULMONARY EDEMA Status: Acute Qualifiers: Chronicity: acute Qualified Code(s): J81.0 - Acute pulmonary edema (6) Chronic atrial fibrillation Code(s): I48.2 - CHRONIC ATRIAL FIBRILLATION Status: Chronic (7) H/O heart valve replacement with mechanical valve Code(s): Z95.2 - PRESENCE OF PROSTHETIC HEART VALVE Status: Chronic (8) Obesity (BMI 30-39.9) Code(s): E66.9 - OBESITY, UNSPECIFIED Status: Chronic (9) Anoxic brain injury Status: Acute Comment: EEG results with near brain per Dr. Nelson report - Plan cont current plan of care anticipate no improvement, not a good candidate for dialysis or aggressive -: treatment due to likelihood of brain from the anoxic insult * . - Discharge Day Encounter end time: 12:30
[2017-11-10] MEDS: cefTRIAXone\\ROCEPHIN 1 GM, Syringe 0.4 ML in Sterile Water 9.6 ML SLOW IVP SCH (11:05)
[2017-11-10 11:22] LABS: CO2 Tension (PvCO2) 79.9 mmHg (41.0-51.0); Potassium 4.8 mmol/L (3.4-4.7); pH (Venous) 6.883 (7.35-7.45); vO2 Saturation-calc 46.8 % (94-98)
[2017-11-10 11:23] LABS: T. Carbon Dioxide 17.5 mmol/L (1.0-85.0)
[2017-11-10 14:26] LABS: Hep B Surface AG-Rflx Sendout Negative (Negative); Hepatitis B Core IgM AB Negative (Negative); Hepatitis B Core Total Negative (Negative); Hepatitis B Surface AB-Sendout Non Reactive (.)
--- NOTE | 2017-11-10 18:01 | PRG ---
DATE OF SERVICE: 11/10/2017 SUBJECTIVE: The patient seen and examined, still vent dependent noted with the following vital signs . PHYSICAL EXAMINATION: VITAL SIGNS: Afebrile with temperature 99.7, pulse 72, respiratory rate of 18, blood pressure 103/72 . HEENT: Remarkable for endotracheal tube in place. CARDIOVASCULAR: First and second heart sounds were heard. RESPIRATORY: Reveals vented sounds. DIGESTIVE: Revealed a benign abdomen, positive bowel sounds. EXTREMITIES: No peripheral edema. NEUROLOGIC: Revealed a patient is unresponsive and does not even respond to painful tactile stimuli. LABORATORY INVESTIGATION: Significant for potassium of 5.9. IMPRESSION: 1. Dense acute tubular necrosis. 2. Hyperkalemia. 3. Anoxic brain injury. 4. Pulmonary edema. PLAN: 1. At this point, awaiting Neurology assessment with the possibility of the patient having brain kenton th. This decision is very important as he relates to how aggressive treatment can be. Patient clear ly getting to the point that dialysis will be indicated; however, if patient is brain , this moda lity of treatment would not be deemed medically necessary. 2. Further management will be dependent on the clinical course as well as the final assessment from Neurology as he relates to possibility of brain in this patient and the decision by the family.
[2017-11-11] MEDS: Lorazepam 2 MG/ML VIAL SLOW IVP SCH ×4 (01:12→07:47)
[2017-11-11 06:26] LABS: #Eosinphils 0.1 thou/uL (0.0-0.7); #Lymphocytes 0.5 thou/uL (1.20-3.40); #Monocytes 0.7 thou/uL (0.11-0.59); #Neutrophils 7.3 thou/uL (1.40-6.50); %Eosinophils 0.6 % (0.0-10.0); %Lymphocytes 5.7 % (21.0-51.0); %Monocytes 8.1 % (0.0-10.0); %Neutrophils 85.5 % (42.0-75.0); Hemoglobin 10.5 g/dL (14.0-18.0); Mean Corpuscular HGB CONC 34.7 g/dL (32.0-36.0); Mean Corpuscular Volume 95.3 fl (80.0-94.0); Mean Platelet Volume 5.8 fL (7.4-10.4); Platelet Count 157 thou/uL (130-400); RBC Distribution Width 12.4 % (11.5-14.5); Red Blood Cell (RBC) Count 3.19 mill/uL (4.70-6.10); White Blood Cell (WBC) Count 8.6 thou/uL (4.8-10.8)
[2017-11-11 06:43] LABS: Anion Gap 20 mmol/L (10-20); BUN (Urea Nitrogen) 123 mg/dL (8.4-25.7); Calc. Creatinine Clearance 17 mL/min (70-130); Calcium 8.3 mg/dL (7.8-10.44); Carbon Dioxide 15 mmol/L (22-29); Chloride 108 mmol/L (98-107); Estimated GFR-MDRD 9; Glucose 117 mg/dL (70-105); Potassium 5.6 mmol/L (3.5-5.1); Sodium 137 mmol/L (136-145)
[2017-11-11 07:25] LABS: Actual Bicarbonate (HCO3a) 14.5 mEq/L (22-26); Base Excess (BEa) -11.6 mEq/L (0 (+/-) 2.5); CO2 Tension 33.6 mmHg (35.0-45.0); Calcium, Ionized 1.1 mmol/L (1.12-1.30); Hemoglobin (Hb) 10.4 g/dL (14.0-18.0); O2 Tension (PaO2) 118.7 mmHg (80.0-100.0); Puncture Site LRA; pH, Arterial 7.26 (7.35-7.45)
[2017-11-11] MEDS: Pantoprazole 40 MG VIAL IVP SCH (08:01)
[2017-11-11] MEDS: Carvedilol 25 MG TAB PO SCH ×2 (08:01→20:13)
[2017-11-11] MEDS: levETIRAcetam In NaCl (Iso-Os) 1,000 MG in Premix Bag 1 BAG IVPB SCH ×2 (08:01→20:13)
--- NOTE | 2017-11-11 09:40 | RAD ---
CHEST 1 VIEW: Date: 11/11/17 HISTORY: Dyspnea. Follow-up. COMPARISON: 11/10/17. FINDINGS: Cardiac silhouette remains magnified and enlarged. Pulmonary vasculature is upper limits of normal. P atchy bibasilar infiltrates are again demonstrated. No evidence of pneumothorax. Mediastinum is midli ne. Lines and tubes appear unchanged in position. environmental monitoring technician leads overlie the chest. IMPRESSION: Pulmonary vascular congestion, patchy bibasilar infiltrates, and other findings are stable. POS: [facility]
--- NOTE | 2017-11-11 10:24 | PRG ---
DATE OF SERVICE: 11/11/2017 SUBJECTIVE: Felipe Villela this morning remains intubated on the vent. OBJECTIVE: VITAL SIGNS: Blood pressure 144/58, respirations 18, temperature 98, sats 100%. His I's and O's hav e been 958 in and 671 out. NEUROLOGIC: He remains encephalopathic. HEENT: Pupils are 4 mm. CHEST: Rhonchi bilaterally. CARDIAC: Sinus tachycardia. ABDOMEN: Soft. IMAGING DATA AND LABORATORY DATA: X-ray shows minimal bilateral pleural effusion and infiltrates. H is labs are pending. EEG did show severe slowing consistent with markedly abnormal EEGs. IMPRESSION: 1. Severe anoxic brain injury. 2. Multiorgan failure, respiratory failure, and renal failure. PLAN: Discussed with the this morning, prognosis is grave. He is status post PDA, history of seizure disorders. I would do comfort care and extubate. Once aga in await input from Neurology and discuss with family, severe anoxic injury to the patient has sustai la. One and half hour critical care time.
[2017-11-11] MEDS: cefTRIAXone\\ROCEPHIN 1 GM, Syringe 0.4 ML in Sterile Water 9.6 ML SLOW IVP SCH (10:25)
[2017-11-11] MEDS ORDERED: Mannitol 12.5 GM/50 ML SLOW IVP SCH (10:45)
--- NOTE | 2017-11-11 16:48 | CT ---
CT OF THE BRAIN WITHOUT CONTRAST: Comparison: 11-06-17 History: Anoxic brain injury. Unresponsive and not waking up. Technique: Multiple contiguous axial images were obtained in a CT of the brain without contrast. FINDINGS: There is complete loss of robert white matter differentiation in the cerebral hemispheres. The cerebell um is hyperdense compared to the cerebral hemispheres. There is no evidence of hydrocephalus, intracr anial hemorrhage, or extraaxial fluid collection. The calvarium and overlying soft tissues are unremarkable. The visualized paranasal sinuses and masto id air cells are well aerated. IMPRESSION: There is complete loss of the robert white matter differentiation in the cerebral hemispheres. This is consistent with the diagnosis of diffuse anoxic brain injury. POS: [facility]
--- NOTE | 2017-11-11 18:35 | PDOC.PN ---
- Subjective Encounter Start Date: 11/11/17 Encounter Start Time: 11:05 -: non-verbal Subjective: f/u for diffuse anoxic brain injury prolonged cardiac arrest with ROSC. -: Remains on mech vent, some reflexive movements, no tracking or following -: commands. Receiving HD first session. - Objective MAR Reviewed: Yes Vital Signs & Weight: Vital Signs (12 hours) Temp Pulse Resp BP Pulse Ox 11/11/17 16:00 21 H 11/11/17 14:51 70 144/58 H 11/11/17 14:00 14 11/11/17 12:00 14 100 11/11/17 10:24 70 132/53 L 11/11/17 10:00 14 11/11/17 08:00 99.5 F 19 11/11/17 07:27 99.5 F 70 16 100 11/11/17 07:16 70 143/55 H Weight Admit Weight 238 lb 1.588 oz Weight 225 lb 15.581 oz Most Recent Monitor Data Heart Rate from ECG 72 NIBP 134/53 NIBP BP-Mean 75 Respiration from ECG 13 SpO2 100 I&O: 11/10/17 11/11/17 11/12/17 06:59 06:59 06:59 Intake Total 958 414 62 Output Total 671 2250 726 Balance 693 -4492 -666 Result Diagrams: 11/11/17 06:03 11/11/17 06:03 Additional Labs: Microbiology 11/06/17 06:59 Venous blood - Left Hand Blood Culture - Final NO GROWTH IN 5 DAYS 11/06/17 06:55 Venous blood - Right Hand Blood Culture - Final NO GROWTH IN 5 DAYS 11/06/17 04:58 Urine cedillo catheter Urine Culture - Final NO GROWTH AT 36 HOURS Laboratory Tests 11/07/17 11/08/17 11/08/17 04:41 04:12 04:12 WBC 22.7 H 14.5 H Potassium 5.1 Carbon Dioxide 16 L Creatinine 4.40 H 11/09/17 11/09/17 11/10/17 05:35 05:35 05:51 WBC 11.9 H Potassium 5.2 H 5.9 H Carbon Dioxide 18 L 18 L Creatinine 5.62 H 6.44 H 11/10/17 05:51 WBC 11.4 H Potassium Carbon Dioxide Creatinine Radiology Reviewed by me: Yes (CT brain - diffuse anoxic brain injury) EKG Reviewed by me: Yes (Tele - V-pacing) Phys Exam - Physical Examination sedate, blinks rhythmically, does not track with eye, no protective blink ETT in place HEENT: moist MMs, sclera anicteric, oral pharynx no lesions Neck: no nodes, no JVD, supple diminished in bibasilar sections, rhonchi and exp wheezes S1, S2 Cardiovascular: RRR, no significant murmur, no rub, gallop no palpable masses Gastrointestinal: soft, no distention, positive bowel sounds Musculoskeletal: pulses present, edema present + gag, coughs on ETT, no tracking with eyes, no response to painful stimuli Skin: no rash, normal turgor, cap refill <2 seconds Deviation from normal: Cedillo with gabrielle urine Dx/Plan (1) Acute kidney failure Status: Acute Qualifiers: Acute renal failure type: with acute tubular necrosis Qualified Code(s): N17.0 - Acute kidney failure with tubular necrosis Comment: HD initiated today, avoid nephrotoxic agents and limit contrast exposure, ? recovery of renal function. (2) Acute respiratory failure with hypoxemia Code(s): J96.01 - ACUTE RESPIRATORY FAILURE WITH HYPOXIA Status: Acute Comment: [facility], Duonebs prn, Rocephin daily (3) Anoxic brain injury Status: Acute Comment: Repeat EEG pending, likely poor prognosis, CT of brain confirming dx, continue Keppra 1000mg IV BID (4) Cardiac arrest Code(s): I46.9 - CARDIAC ARREST, CAUSE UNSPECIFIED Status: Acute Comment: with ROSC, continue tele monitoring (5) Pulmonary edema Code(s): J81.1 - CHRONIC PULMONARY EDEMA Status: Acute Qualifiers: Chronicity: acute Qualified Code(s): J81.0 - Acute pulmonary edema Comment: monitor daily weights and I/O's, consider Lasix if ventilations ineffective. - Plan continue antibiotics, health and social care teacher, speech therapy, respiratory therapy, DVT proph w/SCDs Continue critical support -: Repeat EEG pending -: CT brain showing diffuse anoxic injury -: Palliative care consult -: Limit sedation * AM lab: BMP, CBC, ABG
--- NOTE | 2017-11-11 20:06 | PRG ---
DATE OF SERVICE: 11/11/2017 SUBJECTIVE: Patient is seen and examined, still dependent on life support. I did have a lengthy dis cussion with the family as he relates to the very poor prognosis of this condition; however, family s till wants everything on and at this point, no definitive assessment and evaluation have been done by Neurology as per the family. Family did express a lot of frustration and requested that I dialyze t he patient pending when a definitive Neurology evaluation and assessment be done. Therefore, the jazz n will be to initiate hemodialysis pending for the neurology evaluation. PHYSICAL EXAMINATION: VITAL SIGNS: Blood pressure 134/53, pulse 72, respiratory rate of 13, O2 sat 100%. HEENT: Unremarkable except for endotracheal tube in place. CARDIOVASCULAR: First and second heart sounds were heard. RESPIRATORY: Reveals vented sounds. DIGESTIVE: Revealed an obese abdomen. EXTREMITIES: No peripheral edema. SKIN: No new gross rash. LYMPHATICS: No peripheral lymphadenopathy. NEUROLOGIC: Patient is still unresponsive. However, during the process of putting in a dialysis cat heter for scrub. IMPRESSION: 1. Dense acute tubular necrosis in the context of cardiac arrest. 2. Anoxic brain injury. 3. Hyperkalemia. 4. Pulmonary congestion/hypovolemia. PLAN: 1. As detailed above. Patient dialysis treatment to be initiated, pending definitive evaluati on by Neurology. Therefore, we will proceed with securing a dialysis access and dialysis with ultraf iltration to resume. 2. Patient to receive one-time dose of mannitol with dialysis. 3. Further management to be dependent on the clinical course.
--- NOTE | 2017-11-11 20:10 | OP ---
PROCEDURE: Dialysis catheter placement. INDICATION: Acute tubular necrosis. DETAILS OF PROCEDURE: After informed consent was obtained, the patient was prepped and draped in a s terile fashion. The left femoral vein was approached in layers under real time ultrasound guidance. After serial dilatation, a Trialysis catheter was then placed over wire. Patient tolerated the proc edure well with no immediate postop condition. The line is good for use.
--- NOTE | 2017-11-11 21:34 | PRG ---
DATE OF SERVICE: 11/11/2017 SUBJECTIVE: Mr. Villela is a 62-year-old male who has been admitted on 11/06 after he had a seizure resulting in a cardiopulmonary arrest. He was pulseless and was given CPR for 15 minutes at home before EMS arrived. On arrival of EMS, he was given a few more minutes of CPR and was resuscit ated. He was brought to the [facility] on arrival. After arriving to the [facility], he had another episode of asystole and had to be resuscitated again. Since then, he has been having no improvement in his neurological function. He has been off sedation for at least 3 6 hours per nurse and has no improvement in his neurological function for which I am being asked to g rich a second opinion as family has requested. PHYSICAL EXAMINATION: VITAL SIGNS: Blood pressure of 162/61, pulse of 72, temperature of 99.5, respirations of 16 on mecha nical ventilation. GENERAL: Intubated, nonsedated, male. RESPIRATORY: Clear to auscultation bilaterally. CARDIOVASCULAR: Regular rate and rhythm. NEUROLOGICAL: Mental status: The patient is intubated and nonsedated. He does not respond to verba l or noxious stimuli. Cranial nerves: Pupils are 3 mm and sluggishly reactive bilaterally. Corneal reflexes are present bilaterally. He does breathe over the ventilator machine. He does have positi ve cough and gag reflex. Motor exam showed flaccid bilateral upper and lower extremities. He has de cerebrate posturing to remember pressure in both upper extremities. He does not have any response to noxious stimuli to both lower extremities. Deep tendon reflexes are hyperreflexive throughout. Bab inski: Plantar responses equivocal bilaterally. LABORATORY DATA: Reviewed, which included CBC, BMP, glucose, urinalysis which is significant for hem oglobin 10.5, hematocrit 30.4, potassium of 5.6, BUN of 123, creatinine of 6.51, otherwise unremarkab le. IMAGING STUDIES: CT head without contrast was reviewed, which showed loss of robert white matter diffe rentiation in both cerebral hemispheres consistent with a diffuse anoxic brain injury. EEG was revie thu. Full report is pending. In my opinion, it showed diffuse suppressed activity consistent with a severe anoxic brain injury. IMPRESSION: 1. Anoxic brain injury. 2. Cardiopulmonary arrest. 3. Seizures. PLAN: Mr. Villela is a 62-year-old male with history of seizure disorder who presented with following seizure resulting in a cardiopulmonary arrest. He had to be revived for a prolonged perio d of time. Since then, there is not any much of neurological function. I have reviewed his CT head without contrast done today, which showed severe diffuse anoxic brain injury. I have also reviewed h is EEG from today which showed suppressed activity suggestive of a diffuse anoxic brain injury. I kowalski ve discussed the findings with the patient's family and explained that the prognosis remains very poo r. I have explained the options of aggressive treatment versus conservative therapy. I have explain ed given the severity of the disease process, severity of the injury and the findings of the EEG. Th e chances of meaningful recovery is very, very low. I have spent approximately 25 minutes of discuss ion with the family. Continue supportive care. Thank you for consultation.
[2017-11-12 05:11] LABS: #Eosinphils 0.1 thou/uL (0.0-0.7); #Lymphocytes 0.5 thou/uL (1.20-3.40); #Monocytes 0.7 thou/uL (0.11-0.59); #Neutrophils 7.5 thou/uL (1.40-6.50); %Basophils 0.1 % (0.0-1.0); %Eosinophils 1.2 % (0.0-10.0); %Lymphocytes 5.3 % (21.0-51.0); %Monocytes 8.3 % (0.0-10.0); %Neutrophils 85.1 % (42.0-75.0); Hemoglobin 10.4 g/dL (14.0-18.0); Mean Corpuscular HGB CONC 35.4 g/dL (32.0-36.0); Mean Corpuscular Hemoglobin 33.6 pg (27.0-31.0); Mean Corpuscular Volume 94.7 fl (80.0-94.0); Platelet Count 164 thou/uL (130-400); RBC Distribution Width 12.1 % (11.5-14.5); Red Blood Cell (RBC) Count 3.09 mill/uL (4.70-6.10); White Blood Cell (WBC) Count 8.8 thou/uL (4.8-10.8)
[2017-11-12 05:28] LABS: Anion Gap 18 mmol/L (10-20); BUN (Urea Nitrogen) 102 mg/dL (8.4-25.7); Calc. Creatinine Clearance 24 mL/min (70-130); Calcium 7.8 mg/dL (7.8-10.44); Carbon Dioxide 19 mmol/L (22-29); Chloride 109 mmol/L (98-107); Estimated GFR-MDRD 13; Glucose 132 mg/dL (70-105); Potassium 4.6 mmol/L (3.5-5.1); Sodium 141 mmol/L (136-145)
[2017-11-12 06:58] LABS: Base Excess (BEa) -5.8 mEq/L (0 (+/-) 2.5); CO2 Tension 34.9 mmHg (35.0-45.0); Hematocrit-ABG 28.2 % (42.0-52.0); Hemoglobin (Hb) 9.6 g/dL (14.0-18.0); O2 Tension (PaO2) 119.7 mmHg (80.0-100.0); pH, Arterial 7.36 (7.35-7.45)
[2017-11-12 06:59] LABS: Calcium, Ionized 1.1 mmol/L (1.12-1.30); Puncture Site LRA
[2017-11-12 07:00] LABS: ALV-art Gradient 121.875 (0-20)
--- NOTE | 2017-11-12 07:54 | RAD ---
CHEST 1 VIEW: HISTORY: Dyspnea. COMPARISON: 11/11/17. FINDINGS: Cardiac silhouette remains magnified and enlarged. Pulmonary vasculature engorged with patchy bilate ral perihilar and bibasilar infiltrates. A small amount of pleural fluid persists. Mediastinum midl ine. Lines and tubes appear unchanged in position. drafting instructor leads overlie the chest. IMPRESSION: Congestive heart failure. Stable radiographic appearance of the chest. POS: [facility]
--- NOTE | 2017-11-12 08:18 | PRG ---
DATE OF SERVICE: 11/12/2017 Thirty-five minutes critical care time. The patient remains intubated on mechanical ventilation. PHYSICAL EXAMINATION: VITAL SIGNS: Temperature is 100.0, pulse 74, blood pressure 139/55. He is on no vasopressor therapy , 24-hour intake 475, output 1722 +2700 removed by dialysis. NEUROLOGIC: The patient will withdraw to pain when stimulated on his right hand, left hand and both feet he does withdraw. He does have a gag reflex. He has some spontaneous blinking His pupils are s luggishly reactive, 2 mm to 1 mm. He has extensor posturing. HEENT: Otherwise unremarkable. NECK: No JVD. LUNGS: Clear. CARDIAC: S1 and S2 muffled by mechanical heart valve sound. ABDOMEN: Soft, no hepatosplenomegaly. EXTREMITIES: No clubbing, cyanosis. He has trace edema. LABORATORY DATA: White blood cell count 8.8, hematocrit 29.2, platelet count 164, pH 7.36, pCO2 34, pO2 119 on SIMV rate 14, tidal volume 500, PEEP 5, pressure support 10, FiO2 40%. Sodium 141, potass ium 4.6, chloride 109, CO2 of 19, BUN 102, creatinine 4.7, glucose 132. Chest x-ray demonstrates bilateral effusions. ET tube is about 5 cm above the ton. ASSESSMENT: 1. Status post prolonged cardiopulmonary arrest. 2. Severe anoxic brain injury. 3. Acute respiratory failure requiring mechanical ventilation. 4. Acute renal failure requiring hemodialysis. RECOMMENDATION: I have reviewed the patient's case in detail and examined the patient thoroughly. Keyur mercado has a severe anoxic brain injury from which he is unlikely to recover. I think his current neurolo gic status is about as good as it will be, but certainly he would not be considered "brain ". The patient is not weanable in his current neurologic situation. I think that there should be contin ued conversations with the family emphasizing the fact the patient will not improve. At best, he cou ld have a tracheostomy and feeding tube inserted and would be requiring chronic nursing care for the rest of his life. The orders on the chart were reviewed and seemed to be appropriate.
[2017-11-12] MEDS ORDERED: Mannitol 12.5 GM/50 ML SLOW IVP SCH (08:45)
[2017-11-12] MEDS: Carvedilol 25 MG TAB PO SCH ×2 (09:10→22:06)
[2017-11-12] MEDS: Scopolamine 1.5 mg/72 hour Patch TD SCH (09:10)
[2017-11-12] MEDS: Pantoprazole 40 MG VIAL IVP SCH (09:10)
[2017-11-12] MEDS: levETIRAcetam In NaCl (Iso-Os) 1,000 MG in Premix Bag 1 BAG IVPB SCH ×2 (09:11→22:06)
[2017-11-12] MEDS: cefTRIAXone\\ROCEPHIN 1 GM, Syringe 0.4 ML in Sterile Water 9.6 ML SLOW IVP SCH (09:23)
--- NOTE | 2017-11-12 11:10 | PRG ---
DATE OF SERVICE: 11/12/2017 The patient is seen and examined, still on life support. PHYSICAL EXAMINATION: VITAL SIGNS: Afebrile, blood pressure 152/62, pulse 86, respiratory rate of 14, O2 sat 100%. HEENT: Remarkable for endotracheal tube in place. CARDIOVASCULAR: First and second heart sounds were heard. RESPIRATORY: Reveals vented sounds. DIGESTIVE SYSTEM: Revealed a benign abdomen. EXTREMITIES: No peripheral edema. SKIN: No new gross rash. NEUROLOGIC: Reviewed. The patient noted to be not very responsive, blinking his eyes, but otherwise no lateralizing sign. IMPRESSION: 1. Anoxic brain injury. 2. Acute tubular necrosis in the context of problem #3. 3. Cardiopulmonary failure. 4. Profound azotemia on dialysis. PLAN: 1. We will continue with dialysis. We will continue with dialytic supportive care. 2. Administer mannitol coordinated with dialysis. 3. Further management to be dependent on the clinical course as well as further recommendation from the other specialty services.
--- NOTE | 2017-11-12 19:02 | PDOC.PN ---
- Subjective Encounter Start Date: 11/12/17 Encounter Start Time: 11:15 Subjective: f/u for diffuse anoxic brain injury s/p cardiac arrest with ROSC in context -: of seizure disorder. CT brain confirming diffuse anoxic injury and EEG -: confirming the same. [facility], [facility]nd HD session. - Objective MAR Reviewed: Yes Vital Signs & Weight: Vital Signs (12 hours) Temp Pulse Resp BP Pulse Ox 11/12/17 18:00 16 11/12/17 16:00 99.9 F H 24 H 98 11/12/17 14:44 70 126/82 11/12/17 14:00 14 11/12/17 12:00 99.1 F 16 100 11/12/17 11:00 71 131/64 11/12/17 10:00 14 11/12/17 08:00 99.5 F 14 11/12/17 07:54 100.0 F H 73 14 100 Weight Admit Weight 238 lb 1.588 oz Weight 215 lb 9.793 oz Most Recent Monitor Data Heart Rate from ECG 80 NIBP 144/64 NIBP BP-Mean 97 Respiration from ECG 16 SpO2 99 I&O: 11/11/17 11/12/17 11/13/17 06:59 06:59 06:59 Intake Total 414 475 298 Output Total 2250 1722 591 [facility] -1836 -1247 -293 Result Diagrams: 11/12/17 04:45 11/12/17 04:45 Additional Labs: Microbiology 11/06/17 06:59 Venous blood - Left Hand Blood Culture - Final NO GROWTH IN 5 DAYS 11/06/17 06:55 Venous blood - Right Hand Blood Culture - Final NO GROWTH IN 5 DAYS 11/06/17 04:58 Urine cedillo catheter Urine Culture - Final NO GROWTH AT 36 HOURS Laboratory Tests 11/07/17 11/08/17 11/08/17 04:41 04:12 04:12 WBC 22.7 H 14.5 H Hgb Potassium 5.1 Carbon Dioxide 16 L BUN Creatinine 4.40 H 11/09/17 11/09/17 11/10/17 05:35 05:35 05:51 WBC 11.9 H Hgb 10.1 L Potassium 5.2 H 5.9 H Carbon Dioxide 18 L 18 L BUN 101 H Creatinine 5.62 H 6.44 H 11/10/17 11/11/1711/11/18 05:51 06:03 06:03 WBC 11.4 H 8.6 Hgb 10.3 L 10.5 L Potassium Carbon Dioxide BUN 123 H Creatinine 6.51 H Radiology Reviewed by me: Yes (EEG - diffuse slowing consistent with anoxic injury) EKG Reviewed by me: Yes (Tele - V-pacing) Phys Exam - Physical Examination sedate, rhythmic blinking of eyes, no nystagmus, ETT in place, does not track with eyes HEENT: PERRLA, sclera anicteric, oral pharynx no lesions Neck: no nodes, no JVD, supple scattered rhonchi, diminished in bases Respiratory: no rales S1, S2 Cardiovascular: RRR, no significant murmur, no rub, gallop obese Gastrointestinal: soft, no distention, positive bowel sounds Musculoskeletal: pulses present, edema present rhythmical blinking of eyes, mild withdrawal to painful stimuli Skin: no rash, normal turgor, cap refill <2 seconds Dx/Plan (1) Acute kidney failure Status: Acute Qualifiers: Acute renal failure type: with acute tubular necrosis Qualified Code(s): N17.0 - Acute kidney failure with tubular necrosis Comment: HD initiated today, avoid nephrotoxic agents and limit contrast exposure, ? recovery of renal function. (2) Acute respiratory failure with hypoxemia Code(s): J96.01 - ACUTE RESPIRATORY FAILURE WITH HYPOXIA Status: Acute Comment: Continue mech ventilation, Duonebs prn, Rocephin daily, not weanable (3) Anoxic brain injury Status: Acute Comment: Repeat EEG confirming diffuse anoxic injury, poor prognosis, CT of brain confirming dx, continue Keppra 1000mg IV BID, Palliative care (4) Cardiac arrest Code(s): I46.9 - CARDIAC ARREST, CAUSE UNSPECIFIED Status: Acute Comment: with ROSC, continue tele monitoring (5) Pulmonary edema Code(s): J81.1 - CHRONIC PULMONARY EDEMA Status: Acute Qualifiers: Chronicity: acute Qualified Code(s): J81.0 - Acute pulmonary edema Comment: monitor daily weights and I/O's, improved volume removal with HD - Plan continue antibiotics, social studies department chair, respiratory therapy, DVT proph w/SCDs Continue critical support -: HD per Renal service -: Palliative care consult -: Continue pulmonary support with Rocephin, Duonebs -: Continue Keppra 1000mg IV q12h * AM lab: BMP, CBC * PCXR in am
[2017-11-13 06:16] LABS: #Eosinphils 0.2 thou/uL (0.0-0.7); #Lymphocytes 0.6 thou/uL (1.20-3.40); #Neutrophils 9.8 thou/uL (1.40-6.50); %Basophils 0.2 % (0.0-1.0); %Eosinophils 1.4 % (0.0-10.0); %Lymphocytes 5.3 % (21.0-51.0); %Monocytes 8.3 % (0.0-10.0); %Neutrophils 84.8 % (42.0-75.0); Hemoglobin 10.7 g/dL (14.0-18.0); Mean Corpuscular HGB CONC 35.7 g/dL (32.0-36.0); Mean Corpuscular Hemoglobin 33.4 pg (27.0-31.0); Mean Corpuscular Volume 93.4 fl (80.0-94.0); Mean Platelet Volume 5.7 fL (7.4-10.4); Platelet Count 203 thou/uL (130-400); RBC Distribution Width 12.2 % (11.5-14.5); Red Blood Cell (RBC) Count 3.19 mill/uL (4.70-6.10); White Blood Cell (WBC) Count 11.5 thou/uL (4.8-10.8)
[2017-11-13 06:45] LABS: Anion Gap 13 mmol/L (10-20); BUN (Urea Nitrogen) 91 mg/dL (8.4-25.7); Calc. Creatinine Clearance 29 mL/min (70-130); Calcium 8.2 mg/dL (7.8-10.44); Carbon Dioxide 24 mmol/L (22-29); Chloride 107 mmol/L (98-107); Estimated GFR-MDRD 16; Glucose 134 mg/dL (70-105); Potassium 4.2 mmol/L (3.5-5.1); Sodium 140 mmol/L (136-145)
--- NOTE | 2017-11-13 09:00 | PRG ---
DATE OF SERVICE: 11/13/2017 Thirty-five minutes critical care time. The patient remains intubated on mechanical ventilation. There have been no acute changes. PHYSICAL EXAMINATION: VITAL SIGNS: Temperature 99.3 with a T-max of 100.6, pulse 81, blood pressure 141/64. 24 hour intak e, 577, output 1241. NEURO: Neurologically, he does blink, but not to threat. He withdraws with both his right and left arm to pain, does not withdraw from his legs. He does have spontaneous respirations. HEENT: Otherwise, unremarkable. NECK: No JVD. LUNGS: Coarse breath sounds. CARDIOVASCULAR: S1, S2 regular. ABDOMEN: Soft. EXTREMITIES: No edema. LABORATORY DATA: White blood cell count 11.5, hematocrit 29.8, platelet count 203. ABG pending. So dium 140, potassium 4.2, chloride 107, CO2 24, BUN 91, creatinine 3.7, glucose 134. ASSESSMENT: 1. Status post cardiopulmonary arrest with severe anoxic brain injury. 2. Acute respiratory failure requiring mechanical ventilation. 3. Acute renal failure. PLAN: I spoke with the patient's and [id number] yesterday. They seem to understand the situ ation. I think they are leaning towards withdrawal of care. I reviewed the orders in the chart. Th e patient is continuing antibiotics, intermittent hemodialysis, mechanical ventilation until family m akes further decisions.
--- NOTE | 2017-11-13 09:34 | RAD ---
CHEST 1 VIEW: History Dyspnea. Followup. COMPARISON: 11/12/17. FINDINGS: Cardiac silhouette remains magnified and enlarged. Pulmonary vasculature engorged with patchy areas of parenchymal infiltrate throughout each lung similar in appearance to the prior study. Pleural flu id is less pronounced. Mediastinum is midline. Postoperative changes. Liens and tubes unchanged in position. IMPRESSION: 1. Slight interval increase in bilateral pleural fluid. Radiographic findings of CHF are otherwise stable. POS: MONICA
[2017-11-13] MEDS: Carvedilol 25 MG TAB PO SCH ×2 (10:01→23:42)
[2017-11-13] MEDS: levETIRAcetam In NaCl (Iso-Os) 1,000 MG in Premix Bag 1 BAG IVPB SCH ×2 (10:01→23:42)
[2017-11-13] MEDS: Pantoprazole 40 MG VIAL IVP SCH (10:02)
[2017-11-13] MEDS ORDERED: cefTRIAXone\\ROCEPHIN 1 GM, Syringe 0.4 ML in Sterile Water 9.6 ML SLOW IVP SCH (12:00)
--- NOTE | 2017-11-13 13:58 | PRG ---
DATE OF SERVICE: 11/13/2017 SUBJECTIVE: The patient seen and examined, still life support dependent. From all indication, the f amily seems to be moving towards possible terminal extubation today. Therefore, dialysis to be place d on hold and we will sign off at this point, available to be called if needed.
[2017-11-13] MEDS ORDERED: Lorazepam 2 MG/ML VIAL SLOW IVP PRN (15:56)
[2017-11-13] MEDS: Morphine 4 MG/ML VIAL SLOW IVP PRN (20:33)
--- NOTE | 2017-11-13 22:28 | PDOC.PN ---
- Subjective Encounter Start Date: 11/13/17 Encounter Start Time: 20:00 Subjective: f/u for severe anoxic brain injury s/p cardiac arrest with ROSC. Terminally -: extubated at 1735. HD discontinued. - Objective Resuscitation Status: Resuscitation Status DNR:Do Not Resuscitate MAR Reviewed: Yes Vital Signs & Weight: Vital Signs (12 hours) Temp Pulse Resp BP Pulse Ox 11/13/17 20:00 99.9 F H 72 14 93 L 11/13/17 17:35 14 11/13/17 16:00 99.7 F H 14 11/13/17 14:49 70 115/64 11/13/17 14:00 14 11/13/17 12:00 99.3 F 14 11/13/17 10:35 70 105/65 Weight Admit Weight 238 lb 1.588 oz Weight 208 lb 15.971 oz Most Recent Monitor Data Heart Rate from ECG 75 NIBP 120/63 NIBP BP-Mean 108 Respiration from ECG 26 SpO2 93 I&O: 11/12/17 11/13/17 11/14/17 06:59 06:59 06:59 Intake Total 475 557 170 Output Total 9862 1241 622 Balance 1247 -684 -452 Result Diagrams: 11/13/17 05:25 11/13/17 05:25 Additional Labs: Microbiology 11/06/17 06:59 Venous blood - Left Hand Blood Culture - Final NO GROWTH IN 5 DAYS 11/06/17 06:55 Venous blood - Right Hand Blood Culture - Final NO GROWTH IN 5 DAYS 11/06/17 04:58 Urine cedillo catheter Urine Culture - Final NO GROWTH AT 36 HOURS Laboratory Tests 11/07/17 11/08/17 11/08/17 04:41 04:12 04:12 WBC 22.7 H 14.5 H Hgb Potassium 5.1 Carbon Dioxide 16 L BUN Creatinine 4.40 H 11/09/17 11/09/17 11/10/17 05:35 05:35 05:51 WBC 11.9 H Hgb 10.1 L Potassium 5.2 H 5.9 H Carbon Dioxide 18 L 18 L BUN 101 H Creatinine 5.62 H 6.44 H 11/10/17 11/11/17 11/11/17 05:51 06:03 06:03 WBC 11.4 H 8.6 Hgb 10.3 L 10.5 L Potassium Carbon Dioxide BUN 123 H Creatinine 6.51 H Radiology Reviewed by me: Yes (PCXR - increase in pulm edema) EKG Reviewed by me: Yes (Tele - SR in 70's) Phys Exam - Physical Examination sedate, blinks eyes rhythmically, does not track or respond to voice HEENT: oral pharynx no lesions Neck: no nodes, no JVD, supple coarse sounds bilat Respiratory: no wheezing Cardiovascular: RRR, no significant murmur, no rub, gallop Gastrointestinal: soft, no distention, positive bowel sounds Musculoskeletal: pulses present, edema present unresponsive Skin: no rash, normal turgor, cap refill <2 seconds Dx/Plan (1) Acute kidney failure Status: Acute Qualifiers: Acute renal failure type: with acute tubular necrosis Qualified Code(s): N17.0 - Acute kidney failure with tubular necrosis Comment: HD initiated but now d/c'd with terminal extubation and transition to comfort care (2) Acute respiratory failure with hypoxemia Code(s): J96.01 - ACUTE RESPIRATORY FAILURE WITH HYPOXIA Status: Acute Comment: Terminal extubation @1735 (3) Anoxic brain injury Status: Acute Comment: Repeat EEG confirming diffuse anoxic injury, poor prognosis, CT of brain confirming dx, continue Keppra 1000mg IV BID, Palliative care (4) Cardiac arrest Code(s): I46.9 - CARDIAC ARREST, CAUSE UNSPECIFIED Status: Acute Comment: with ROSC, continue tele monitoring (5) Pulmonary edema Code(s): J81.1 - CHRONIC PULMONARY EDEMA Status: Acute Qualifiers: Chronicity: acute Qualified Code(s): J81.0 - Acute pulmonary edema Comment: Comfort/Palliative care - Plan social work supervisor Transition to comfort measures -: Ativan IV PRN -: O2 via NC -: Morphine Sulfate 2mg IV q2h prn -: Transfer to Medical floor * Palliative care following
[2017-11-14] MEDS: Morphine 4 MG/ML VIAL SLOW IVP PRN ×5 (05:29→21:57)
[2017-11-14] MEDS: Carvedilol 25 MG TAB PO SCH (07:31)
[2017-11-14] MEDS: levETIRAcetam In NaCl (Iso-Os) 1,000 MG in Premix Bag 1 BAG IVPB SCH (09:20)
[2017-11-14] MEDS: Pantoprazole 40 MG VIAL IVP SCH (09:20)
[2017-11-14] MEDS ORDERED: cefTRIAXone\\ROCEPHIN 1 GM in Sodium Chloride 0.9% 100 ML IVPB SCH (12:00)
[2017-11-14] MEDS: Lorazepam 2 MG/ML VIAL SLOW IVP PRN (17:57)
--- NOTE | 2017-11-14 22:35 | PDOC.PN ---
- Subjective Encounter Start Date: 11/14/17 Encounter Start Time: 16:00 Patient seen and examined for comfort care. Appears comfortable. No overnight events - Objective Resuscitation Status: Resuscitation Status DNR:Do Not Resuscitate MAR Reviewed: Yes Vital Signs & Weight: Vital Signs (12 hours) Temp Pulse Resp BP Pulse Ox 11/14/17 20:39 101.6 F H 82 22 H 128/71 95 Weight Admit Weight 238 lb 1.588 oz Weight 201 lb 3.2 oz Most Recent Monitor Data Heart Rate from ECG 77 NIBP 107/58 NIBP BP-Mean 69 Respiration from ECG 13 SpO2 95 I&O: 11/13/17 11/14/17 11/15/17 06:59 06:59 06:59 Intake Total 557 310 276 Output Total 1242 1697 350 [facility] -684 -1387 -74 Result Diagrams: 11/13/17 05:25 11/13/17 05:25 Phys Exam - Physical Examination Constitutional: NAD Respiratory: no wheezing Coarse Bs B/L Cardiovascular: RRR, no rub Gastrointestinal: soft, positive bowel sounds Dx/Plan (1) Anoxic brain injury Status: Acute Comment: Repeat EEG confirming diffuse anoxic injury, poor prognosis, CT of brain confirming dx, continue Keppra 1000mg IV BID, Palliative care (2) Cardiac arrest Code(s): I46.9 - CARDIAC ARREST, CAUSE UNSPECIFIED Status: Acute Comment: with ROSC, continue tele monitoring - Plan plan discussed w/ family, DVT proph w/SCDs -: Cont Ativan/Morphine PRN for comfort care -: Cont Scopolamine patch Review of Systems - Review of Systems Other: Cannot obtain due to current mentation - Medications/Allergies Allergies/Adverse Reactions: Allergies Allergy/AdvReac Type Severity Reaction Status Date / Time No Known Allergies Allergy Verified 11/06/17 09:00 Medications: Current Medications Acetaminophen (Tylenol) 650 mg HI Q4H PRN PRN Reason: Headache/Fever or Mild Pain Acetaminophen (Tylenol Elixir) 650 mg PER TUBE Q4H PRN PRN Reason: TEMP > 100.5 Last Admin: 11/10/17 06:53 Dose: 650 mg Al Hydroxide/Mg Hydroxide (Maalox) 15 ml PER TUBE Q4H PRN PRN Reason: Heartburn or Indigestion Artificial Tears (Tears Naturale) 0 drop EA EYE PRN PRN PRN Reason: Dry Eyes Lorazepam (Ativan) 2 mg SLOW IVP Q1H PRN PRN Reason: Breakthrough agitation Stop: 12/06/17 09:19 Last Admin: 11/08/17 21:38 Dose: 2 mg Lorazepam (Ativan) 2 mg SLOW IVP Q4HR PRN PRN Reason: Anxiety/Agitation Last Admin: 11/14/17 17:57 Dose: 2 mg Lorazepam (Ativan) 1 mg SLOW IVP Q4H PRN PRN Reason: Anxiety/Agitation 1ST LINE Mineral Oil/White Petrolatum (Eucerin Cream) 0 gm TOP BIDPRN PRN PRN Reason: Dry Skin Morphine Sulfate (Morphine) 2 mg SLOW IVP Q1H PRN PRN Reason: breakthrough pain/agitation Stop: 12/06/17 09:19 Morphine Sulfate (Morphine) 4 mg SLOW IVP Q1H PRN PRN Reason: Dyspnea Last Admin: 11/14/17 21:57 Dose: 4 mg Ondansetron HCl (Zofran Odt) 4 mg SL Q6H PRN PRN Reason: Nausea/Vomiting Ondansetron HCl (Zofran) 4 mg IVP Q6H PRN PRN Reason: Nausea/Vomiting Scopolamine (Transderm Scop) 1.5 mg TD Q3D CITLALI Last Admin: 11/12/17 09:10 Dose: 1.5 mg
[2017-11-15] MEDS: Morphine 4 MG/ML VIAL SLOW IVP PRN ×4 (00:05→20:13)
[2017-11-15] MEDS: Acetaminophen 650 MG Suppository PR PRN ×3 (00:12→23:38)
[2017-11-15] MEDS: Scopolamine 1.5 mg/72 hour Patch TD SCH (07:52)
[2017-11-15] MEDS: Lorazepam 2 MG/ML VIAL SLOW IVP PRN (23:48)
[2017-11-16 07:41] VITALS: BP 115/70; TEMP 100.3
[2017-11-16] MEDS: Acetaminophen 650 MG Suppository PR PRN (09:38)
[2017-11-16] MEDS: Lorazepam 2 MG/ML VIAL SLOW IVP PRN (10:13)
[2017-11-16 12:47] VITALS: BMI 30.6
[2017-11-16] MEDS: Morphine 4 MG/ML VIAL SLOW IVP PRN (14:30)
--- NOTE | 2017-11-17 12:35 | DIS ---
DISCHARGE DISPOSITION: Inpatient hospice at [facility]. BRIEF HOSPITAL COURSE: The patient is a 62-year-old male with seizure disorder, coronary artery dise ase, status post CABG who was brought in to the hospital on 11/06/2017 with altered mentation. He re quired CPR with pressors for pulseless electrical activity arrest. He was also placed on mechanical ventilation. Please refer to the history and physical dated 11/06/2017 for further details. The patient was admitted to the Intensive Care Unit with diagnosis of cardiac arrest. His Dilantin l evel on admission was 2.2. Troponin was 0.047 that went up to 3.4. His lactic acid was 14.2 with cr eatinine 1.35. The patient had an extensive stay in the CCU. Please refer to the consultation notes for details. He was seen by multiple consultants including Critical Care, Nephrology Dr. Booth for acute tubular necrosis, Neurology, Dr. Prachi Rosa for anoxic brain injury and seizures. CT scan of the brain last done on 11/11/2017 showed complete loss of robert white matter differentiation in th e cerebral hemisphere consistent with diffuse anoxic injury. The patient was terminally extubated and was transferred to the medical floor. We will transition [facility] to inpatient hospice per family's request. FINAL DIAGNOSES: 1. Cardiac arrest with anoxic brain injury. His AICD interrogation did not show any discharges. 2. Seizure. 3. Abnormal troponin secondary to demand ischemia/CPR. 4. Hypotensive shock, requiring pressors. 5. Chronic atrial fibrillation. 6. Acute kidney injury/acute tubular necrosis requiring hemodialysis that was later discontinued. 7. History of aortic valve replacement with mechanical valve, on anticoagulation on admission. 8. Nonischemic cardiomyopathy status post AICD. 9. History of cirrhosis. 10. Coronary artery disease, status post coronary artery bypass graft. 11. Lactic acidosis/metabolic acidosis secondary to prolonged hypotension. PLAN: Plan of care was discussed with the family in detail and they stated understanding.
--- NOTE | 2017-11-18 09:08 | EEG ---
Referring Physician: DR. ZHANNA NGUYEN EEG # [id number] TEST TYPE: ROUTINE PORTABLE INPATIENT DATE EEG BEING DONE: 11/11/2017 REASON FOR EEG: ANOXIC BRAIN INJURY EEG DESCRIPTION: This is a 21 channel EEG recording. Electrodes are placed using the international 10-20 electrode placement system. The background rhythm is predominately severely suppressed, severely diffuse suppression. It is nonreactive to stimulation. With application of sternal rub, there is increased EMG activity, but no reactivity. PHOTIC STIMULATION: Showed no effect. HYPERVENTILATION: Is not done. There are no epileptiform discharges, sharp transients or asymmetry noted. IMPRESSION: THIS IS AN ABNORMAL EEG. IT SHOWS SEVERE, DIFFUSE SUPPRESSION. THIS WOULD CORRELATE WITH THE PATIENT'S UNDERLYING SEVERE ANOXIC BRAIN INJURY. Binder Technician: REYNOLD Zoo Keeper: EEG.MSKay DURAN
== END 2017-11-16 16:29 | disposition hospice, inpatient (51) | DRG 207 ==
LOC: ERS 03:37 → CCU 05:30 → T4-A 11-13 23:24
PROVIDERS: ADMIT Internal Medicine; ATTEND Internal Medicine
PROC: 5A1955Z Respiratory Ventilation, Greater than 96 Consecutive Hours (ICD-10-PCS; principal; 2017-11-06)
PROC: 5A12012 Performance of Cardiac Output, Single, Manual (ICD-10-PCS; 2017-11-06)
PROC: 5A1D70Z Performance of Urinary Filtration, Intermittent, Less than 6 Hours Per Day (ICD-10-PCS; 2017-11-11)
PROC: 06HY33Z Insertion of Infusion Device into Lower Vein, Percutaneous Approach (ICD-10-PCS; 2017-11-11)
PROC: 5A1D70Z Performance of Urinary Filtration, Intermittent, Less than 6 Hours Per Day (ICD-10-PCS; 2017-11-12)
DX: J96.01 Acute respiratory failure with hypoxia (principal); N17.0 Acute kidney failure with tubular necrosis; I46.8 Cardiac arrest due to other underlying condition; J81.0 Acute pulmonary edema; E87.2 Acidosis; G93.1 Anoxic brain damage, not elsewhere classified; I24.8 Other forms of acute ischemic heart disease; I50.22 Chronic systolic (congestive) heart failure; I42.6 Alcoholic cardiomyopathy; G40.901 Epilepsy, unspecified, not intractable, with status epilepticus; E87.5 Hyperkalemia; I25.10 Atherosclerotic heart disease of native coronary artery without angina pectoris; I48.2 Chronic atrial fibrillation; K74.60 Unspecified cirrhosis of liver; E66.9 Obesity, unspecified; Z68.30 Body mass index [BMI] 30.0-30.9, adult; Z79.01 Long term (current) use of anticoagulants; Z79.82 Long term (current) use of aspirin; Z79.899 Other long term (current) drug therapy; Z95.1 Presence of aortocoronary bypass graft; Z95.810 Presence of automatic (implantable) cardiac defibrillator; Z95.2 Presence of prosthetic heart valve
CPT/HCPCS: 36415; 36556; 51702; 70450; 71045; 72125; 76870; 80048; 80053; 80185; 80306; 80307; 81003; 81015; 82330; 82553; 82803; 82805; 83605; 83880; 84484; 85025; 85610; 85730; 86704; 86705; 86706; 86707; 87040; 87086; 87340; 87350; 90935; 92950; 93005; 93306; 93976; 94002; 94003; 94640; 95816; 95819; 96365; 96366; 96375; 96376; 99292; A4216; C1752; C1769; C9113; G0257; J0131; J0171; J0360; J0696; J1644; J1940; J1953; J2060; J2150; J2270; J2704; J3010; J7050; J7070; J7611

== ENCOUNTER 2017-11-16 16:35 | Inpatient (IN) | payer OTHER ==
[2017-11-16] MEDS ORDERED: Lorazepam 2 MG/ML VIAL SLOW IVP PRN (16:50)
[2017-11-16] MEDS ORDERED: Haloperidol Lactate 5 MG/ML VIAL SLOW IVP PRN (16:50)
[2017-11-16] MEDS ORDERED: Milk Of Magnesia 30 ML UDCUP PO PRN (16:50)
[2017-11-16] MEDS ORDERED: Promethazine HCl 25 MG SUPP PR PRN (16:50)
[2017-11-16] MEDS ORDERED: Hyoscyamine Sulfate SL 0.125 mg Tablet SL PRN (16:50)
[2017-11-16] MEDS ORDERED: Morphine 10 MG/0.5 ML ORAL SYRINGE SL PRN (16:50)
[2017-11-16] MEDS ORDERED: diphenhydrAMINE 25 MG CAP PO PRN (16:50)
[2017-11-16] MEDS ORDERED: Zolpidem Tartrate 5 MG TAB PO PRN (16:50)
[2017-11-16] MEDS ORDERED: Ondansetron HCl/PF 4 MG/2 ML Vial IVP PRN (16:50)
[2017-11-16] MEDS ORDERED: Scopolamine 1.5 mg/72 hour Patch TOP PRN (16:50)
[2017-11-16] MEDS ORDERED: ALPRAZolam 0.25 MG TAB PO PRN (16:50)
[2017-11-16] MEDS ORDERED: Loperamide HCl 2 MG CAP PO PRN (16:50)
[2017-11-16] MEDS ORDERED: Ondansetron ODT 4 MG TAB PO PRN (16:50)
[2017-11-16] MEDS ORDERED: chlorproMAZINE HCl 25 MG in Sodium Chloride 0.9% 50 ML IVPB PRN (16:50)
[2017-11-16] MEDS ORDERED: Lorazepam 1 MG TAB PO PRN ×2 (16:50)
[2017-11-16] MEDS ORDERED: diphenhydrAMINE 50 MG/ML VIAL IVP PRN (16:50)
[2017-11-16] MEDS ORDERED: chlorproMAZINE HCl 50 MG/2 ML AMP IM PRN ×2 (16:50)
[2017-11-16] MEDS ORDERED: Morphine IR Tab 15 MG TAB PO PRN (16:50)
[2017-11-16] MEDS ORDERED: Ibuprofen 200 MG TAB PO PRN (16:56)
[2017-11-16] MEDS: Morphine 4 MG/ML VIAL SLOW IVP PRN (23:56)
[2017-11-17] MEDS: Lorazepam 2 MG/ML VIAL SLOW IVP PRN ×3 (02:01→17:26)
[2017-11-17] MEDS: Acetaminophen 650 MG Suppository PR PRN ×3 (05:28→20:56)
[2017-11-17] MEDS: Morphine 4 MG/ML VIAL SLOW IVP PRN ×4 (05:39→17:24)
[2017-11-17 19:29] VITALS: BP 66/45; TEMP 103
== END 2017-11-17 22:20 | disposition expired | DRG 296 ==
LOC: T4-A 16:35
PROVIDERS: ADMIT Family Medicine; ATTEND Family Medicine
PROC: 5A1935Z Respiratory Ventilation, Less than 24 Consecutive Hours (ICD-10-PCS; principal; 2017-11-16)
DX: I46.9 Cardiac arrest, cause unspecified (principal); J96.01 Acute respiratory failure with hypoxia; E87.2 Acidosis; I50.22 Chronic systolic (congestive) heart failure; J81.1 Chronic pulmonary edema; G40.909 Epilepsy, unspecified, not intractable, without status epilepticus; I25.10 Atherosclerotic heart disease of native coronary artery without angina pectoris; Z95.1 Presence of aortocoronary bypass graft; Z95.0 Presence of cardiac pacemaker; D72.829 Elevated white blood cell count, unspecified; Z95.2 Presence of prosthetic heart valve; Z79.01 Long term (current) use of anticoagulants; I48.2 Chronic atrial fibrillation; Z87.891 Personal history of nicotine dependence; Z51.5 Encounter for palliative care; E66.9 Obesity, unspecified; Z68.30 Body mass index [BMI] 30.0-30.9, adult
CPT/HCPCS: J2060; J2270; J3230; J7050